=== PATIENT | female | born 1960 | race Caucasian/White ===

== ENCOUNTER → 2017-03-24 | Outpatient (CLI) | payer BC ==
--- NOTE | 2017-03-24 11:14 | P.STRESS ---
- Stress Test Note Stress Test Results/Findings: Exam Performed: NM stress lexiscan cardiolite Exam Date: 03/24/17 Height: 5 ft 4 in Weight: 61.235 kg Protocol: Genoveva Stage: N/A Duration of Exercise: N/A Resting Heart Rate: 70 Resting Blood Pressure: 137/91 Maximum Achieved Heart Rate: 131 Maximum Achieved Blood Pressure: 141/92 85% PMHR: 141 100% PMHR: 166 METS: N/A Technologist Comment: Stress Test Results/Findings: Baseline rhythm is sinus mechanism, rate of 70, nonspecific ST changes. Patient received injection of Lexiscan, there was no diagnostic ST segment changes. Cardiolite was injected per protocol. Impression : 1. Nondiagnostic EKG stress test. 2. Nuclear images will be reported separately.
--- NOTE | 2017-03-24 11:51 | NM ---
EXAMINATION TYPE: NM stress Lexiscan cardiolite DATE OF EXAM: 03/24/2017 COMPARISON: NONE HISTORY: Abnormal EKG. TECHNIQUE: After the intravenous administration of 9.6 mCi Tc 99m Sestamibi - Cardiolite resting SPE CT images acquired 45 minutes post injection. The patient received 0.4mg Lexiscan, 26.3 mCi Tc 99m Sestamibi - Stress images obtained [address] injection FINDINGS: There is relatively poor uptake of radiopharmaceutical by the left ventricle. There is incr eased activity on the rest images globally. I suspect this represents an information density problem resolving Global ischemia. Wall motion appears normal ejection fraction is normal 60%. IMPRESSION: INFORMATION DENSITY PROBLEM VERSUS GLOBAL ISCHEMIA.
== END | disposition home or self-care (01) ==
LOC: RADNMMAIN 08:57
PROVIDERS: ATTEND Family Medicine
DX: R94.31 Abnormal electrocardiogram [ECG] [EKG] (principal)
CPT/HCPCS: 93017; 78452; A9500

== ENCOUNTER 2017-06-05 16:14 | Emergency (ER) | payer BC ==
[2017-06-05 16:18] VITALS: RESP 18; TEMP 97.9
[2017-06-05] MEDS ORDERED: ORPHENADRINE 30 MG/ML 2 ML VIAL IM STA (16:42)
[2017-06-05] MEDS ORDERED: methylPREDNISolone SOD SUCCI 125 MG/2 ML VIAL IM ONE (16:42)
--- NOTE | 2017-06-05 16:59 | ED ---
Back Pain HPI - General Chief Complaint: Back Pain/Injury Stated Complaint: BACK PAIN/INJURY Time Seen by Provider: 06/05/17 16:19 Source: patient, RN notes reviewed, old records reviewed Limitations: no limitations - History of Present Illness Initial Comments: This is a 56 year old female with CC of left sided thoracic back pain after picking up her grandchildren frequently this week. Matthew reports that this started to be worse when she picked the grandchild up on [place] an [place], and felt a pull in her back. She went to chiropractor on yesterday, and reports it is worse. She states she has been taking motrin with no relief. Patient denies any saddle anesthesias, denies any pain radiating down the legs. - Related Data Home Medications Medication Instructions Recorded Confirmed [id number] 1 each PO DIRECTED PRN 08/17/16 08/17/16 [Excedrin] amLODIPine [Norvasc] 5 mg PO DAILY 08/24/16 08/24/16 Previous Rx's Medication Instructions Recorded Acetaminophen-Codeine 300-30mg 1 tab PO Q6H PRN #15 tablet 06/05/17 [Tylenol #3] Cyclobenzaprine [Flexeril] 10 mg PO TID #15 tab 06/05/17 Dexamethasone 0.75 mg PO DAILY #12 tab 06/05/17 Allergies Allergy/AdvReac Type Severity Reaction Status Date / Time sulfamethoxazole Allergy Severe SWELLING Verified 06/05/17 16:18 [From Bactrim] ALL OVER. trimethoprim [From Bactrim] Allergy Severe SWELLING Verified 06/05/17 16:18 ALL OVER. lisinopril AdvReac Cough Verified 06/05/17 16:18 Review of Systems ROS Statement: Those systems with pertinent positive or pertinent negative responses have been documented in the HPI. ROS Other: All systems not noted in ROS Statement are negative. Past Medical History Past Medical History: No Reported History History of Any Multi-Drug Resistant Organisms: None Reported Past Surgical History: Bowel Resection, Ear Surgery, Orthopedic Surgery Additional Past Surgical History / Comment(s): EXPLORATORY LAPAROTOMY, TOTAL RIGHT KNEE ARTHROSCOPY, PALATE SURGERY Past Psychological History: No Psychological Hx Reported Smoking Status: Never smoker Past Alcohol Use History: None Reported Past Drug Use History: None Reported General Exam - General Exam Comments Initial Comments: Is a pleasant 56-year-old female. No acute distress. Limitations: no limitations General appearance: alert, in no apparent distress Head exam: Present: atraumatic, normocephalic, normal inspection Eye exam: Present: normal appearance, PERRL, EOMI. Absent: scleral icterus, conjunctival injection, periorbital swelling ENT exam: Present: normal exam, mucous membranes moist Neck exam: Present: normal inspection. Absent: tenderness, meningismus, lymphadenopathy Respiratory exam: Present: normal lung sounds bilaterally. Absent: respiratory distress, wheezes, rales, rhonchi, stridor Cardiovascular Exam: Present: regular rate, normal rhythm, normal heart sounds. Absent: systolic murmur, diastolic murmur, rubs, gallop, clicks GI/Abdominal exam: Present: soft, normal bowel sounds. Absent: distended, tenderness, guarding, rebound, rigid Extremities exam: Present: normal inspection, full ROM, normal capillary refill. Absent: tenderness, pedal edema, joint swelling, calf tenderness Back exam: Present: normal inspection, tenderness (left thoracic and lumbar paraspinal tenderness), paraspinal tenderness (left thoracic ) Neurological exam: Present: alert, oriented X3, CN II-XII intact Psychiatric exam: Present: normal affect, normal mood Skin exam: Present: warm, dry, intact, normal color. Absent: rash Course Vital Signs 06/05/17 16:15 Temperature 97.9 F Pulse Rate 87 Respiratory 18 Rate Blood Pressure 193/93 O2 Sat by Pulse 98 Oximetry Medical Decision Making - Medical Decision Making This is a 56-year-old female presents emergency Department chief complaint of left-sided thoracic back pain worse with movements and it started after she picked up her grandchild. Patient given IM Norflex and Solu-Medrol. Patient reports a Motrin and I'm helping. Denies any recent falls. Denies any saddle anesthesias. Patient is full range of motion however extremities. Patient received thoracic and lumbar spine x-rays. Thoracic spine was normal. Mild degenerative disc changes at L5-S1. Patient was informed of these results. Patient will be discharged at this time with a prescription for muscle relaxers , anti-inflammatory medication, and pain medication. Discussed following up with primary care provider or crisis intervention specialist. Discussed return to emergency department if any alarming signs or symptoms occur. Patient agrees to treatment plan will comply. Return parameters were discussed. - Radiology Data Radiology results: report reviewed X-ray of the thoracic spine was within normal limits. Mild degenerative disc changes at L5-S1. Disposition Clinical Impression: Back muscle spasm Disposition: HOME SELF-CARE Condition: Good Instructions: Acute Low Back Pain (ED), Muscle Spasm (ED) Additional Instructions: Patient has a continue to apply ice over the area. Also alternate with heat for 20 minutes. Patient should take the anti-inflammatory medication such as Motrin, and take the steroid, muscle relaxer and pain medicine as prescribed. Patient should follow up with your primary care provider if symptoms continue to persist after the next 3-4 days. Return to emergency department if any alarming signs or symptoms occur including loss of bowel or bladder control. Prescriptions: Acetaminophen-Codeine 300-30mg [Tylenol #3] 1 tab PO Q6H PRN #15 tablet PRN Reason: Pain Cyclobenzaprine [Flexeril] 10 mg PO TID #15 tab Dexamethasone 0.75 mg PO DAILY #12 tab Referrals: Serina Ponce NPC [Nurse Practitioner] - 1-2 days Time of Disposition: 17:15
--- NOTE | 2017-06-05 17:06 | XR ---
EXAMINATION TYPE: XR lumbar spine 2 or 3V DATE OF EXAM: 06/05/2017 COMPARISON: NONE HISTORY: Pain mid to lower back TECHNIQUE: Three-view lumbar spine FINDINGS: There is narrowing of the L5-S1 disc height. Remaining disc heights are preserved. Vertebra l body heights are preserved. Alignment is normal. There 5 lumbar-type vertebral bodies. The pedicles are intact. IMPRESSION: 1. Mild degenerative disc changes L5-S1
--- NOTE | 2017-06-05 17:07 | XR ---
EXAMINATION TYPE: XR thoracic spine 2V DATE OF EXAM: 06/05/2017 COMPARISON: NONE HISTORY: Mid back pain after bending injury TECHNIQUE: 3 views thoracic spine FINDINGS: There are 12 thoracic type vertebral bodies. Pedicles are intact. Disc heights are preserve d. Vertebral body heights are preserved. Alignment is normal. IMPRESSION: 1. Normal thoracic spine
[2017-06-05 17:30] VITALS: BP 157/97; PULSE 77
== END 2017-06-05 17:38 | disposition home or self-care (01) ==
LOC: EC 16:14
DX: M62.830 Muscle spasm of back (principal); M47.817 Spondylosis without myelopathy or radiculopathy, lumbosacral region; Z79.899 Other long term (current) drug therapy; Z88.2 Allergy status to sulfonamides; Z88.8 Allergy status to other drugs, medicaments and biological substances
CPT/HCPCS: 99284 ×2; 96372 ×3; 72070; 72100; J2360; J2930

== ENCOUNTER → 2017-11-08 | Outpatient (CLI) | payer BC ==
[2017-11-08 14:11] LABS: HCT 42.1 % (34.0-46.0); HGB 13.3 gm/dL (11.4-16.0); MCH 29.4 pg (25.0-35.0); MCHC 31.5 g/dL (31.0-37.0); MCV 93.2 fL (80.0-100.0); Mean Platelet Volume 6.9; Platelet Count 367 k/uL (150-450); RBC 4.51 m/uL (3.80-5.40); WBC 5.6 k/uL (3.8-10.6)
== END | disposition home or self-care (01) ==
LOC: LABWHC1 12:47
PROVIDERS: ATTEND Orthopaedic Surgery Adult Reconstructive Orthopaedic Surgery
DX: Z01.89 Encounter for other specified special examinations (principal)
CPT/HCPCS: 36415; 82040; 85027; 87070

== ENCOUNTER 2020-10-18 12:14 | Inpatient (IN) | payer BC ==
[2020-10-18] MEDS ORDERED: MORPHINE SULFATE 4 MG/ML SYRINGE IV STA ×2 (12:26→13:25)
[2020-10-18] MEDS ORDERED: ONDANSETRON 4 MG/2 ML VIAL IVP STA (12:26)
[2020-10-18] MEDS ORDERED: SODIUM CHLORIDE 0.9% 1,000 ML IV STA (12:26)
--- NOTE | 2020-10-18 13:00 | ED ---
Abdominal Pain HPI - General Chief Complaint: Abdominal Pain Stated Complaint: Abd pain Time Seen by Provider: 10/18/20 12:25 Source: patient Mode of arrival: ambulatory Limitations: no limitations - History of Present Illness Initial Comments: Patient complains of abdominal pain. The pain has been persistent for several days. Now the pain is radiating from the left flank to the front. She has no chest pain or shortness of breath. She has no palpitations. She has no focal weakness. She has no lightheadedness or dizziness. She has no nausea or vomiting. She has no change in bowel or bladder habits. She has taken no medicine for the symptoms. She wasn't doing anything when this began. - Related Data Home Medications Medication Instructions Recorded Confirmed Losartan [Cozaar] 50 mg PO DAILY 10/18/20 10/18/20 Allergies Allergy/AdvReac Type Severity Reaction Status Date / Time sulfamethoxazole Allergy Severe SWELLING Verified 10/18/20 13:52 [From Bactrim] ALL OVER. trimethoprim [From Bactrim] Allergy Severe SWELLING Verified 10/18/20 13:52 ALL OVER. lisinopril AdvReac Cough Verified 10/18/20 13:52 Review of Systems ROS Statement: Those systems with pertinent positive or pertinent negative responses have been documented in the HPI. ROS Other: All systems not noted in ROS Statement are negative. Past Medical History Past Medical History: No Reported History History of Any Multi-Drug Resistant Organisms: None Reported Past Surgical History: Bowel Resection, Ear Surgery, Orthopedic Surgery Additional Past Surgical History / Comment(s): EXPLORATORY LAPAROTOMY, TOTAL RIGHT KNEE ARTHROSCOPY, PALATE SURGERY Past Psychological History: No Psychological Hx Reported Smoking Status: Never smoker Past Alcohol Use History: Occasional Past Drug Use History: None Reported General Exam Limitations: no limitations General appearance: alert, in no apparent distress Head exam: Present: atraumatic, normocephalic, normal inspection Eye exam: Present: normal appearance, PERRL, EOMI. Absent: scleral icterus, conjunctival injection, periorbital swelling ENT exam: Present: normal exam, mucous membranes moist Neck exam: Present: normal inspection. Absent: tenderness, meningismus, lymphadenopathy Respiratory exam: Present: normal lung sounds bilaterally. Absent: respiratory distress, wheezes, rales, rhonchi, stridor Cardiovascular Exam: Present: regular rate, normal rhythm, normal heart sounds. Absent: systolic murmur, diastolic murmur, rubs, gallop, clicks GI/Abdominal exam: Present: soft, tenderness. Absent: distended, guarding, rebound, rigid Extremities exam: Present: normal inspection, full ROM, normal capillary refill. Absent: tenderness, pedal edema, joint swelling, calf tenderness Back exam: Present: normal inspection Neurological exam: Present: alert, oriented X3, CN II-XII intact Psychiatric exam: Present: normal affect, normal mood Skin exam: Present: warm, dry, intact, normal color. Absent: rash Course Vital Signs 10/18/20 10/18/20 10/18/20 12:15 12:43 13:33 Temperature 99.0 F 97.9 F Pulse Rate 113 H 92 87 Respiratory 20 18 18 Rate Blood Pressure 204/134 169/113 154/82 O2 Sat by Pulse 99 99 99 Oximetry Medical Decision Making - Medical Decision Making Patient presents with abdominal pain. Her laboratory studies show a slight elevation of lipase. However, her CT of the abdomen and pelvis does not show any evidence of any acute emergency including gallbladder pathology. Patient is able to tolerate oral intake. She will follow-up with GI. She is stable for discharge. - Lab Data Result diagrams: 10/18/20 12:39 10/18/20 12:39 Lab Results 10/18/20 10/18/20 10/18/20 Range/Units 12:39 12:39 12:57 WBC 6.9 (3.8-10.6) k/uL RBC 4.92 (3.80-5.40) m/uL Hgb 15.3 (11.4-16.0) gm/dL Hct 46.6 H (34.0-46.0) % MCV 94.6 (80.0-100.0) fL MCH 31.0 (25.0-35.0) pg MCHC 32.8 (31.0-37.0) g/dL RDW 13.0 (11.5-15.5) % Plt Count 404 (150-450) k/uL MPV 6.9 Neutrophils % 76 % Lymphocytes % 17 % Monocytes % 2 % Eosinophils % 4 % Basophils % 1 % Neutrophils # 5.3 (1.3-7.7) k/uL Lymphocytes # 1.2 (1.0-4.8) k/uL Monocytes # 0.1 (0-1.0) k/uL Eosinophils # 0.3 (0-0.7) k/uL Basophils # 0.0 (0-0.2) k/uL Sodium 138 (137-145) mmol/L Potassium 3.9 (3.5-5.1) mmol/L Chloride 101 (98-107) mmol/L Carbon Dioxide 30 (22-30) mmol/L Anion Gap 7 mmol/L BUN 25 H (7-17) mg/dL Creatinine 0.53 (0.52-1.04) mg/dL Est GFR (CKD-EPI)AfAm >90 (>60 ml/min/1.73 sqM) Est GFR (CKD-EPI)NonAf >90 (>60 ml/min/1.73 sqM) Glucose 134 H (74-99) mg/dL Calcium 10.0 (8.4-10.2) mg/dL Total Bilirubin 0.7 (0.2-1.3) mg/dL AST 32 (14-36) U/L ALT 23 (4-34) U/L Alkaline Phosphatase 72 (38-126) U/L Total Protein 7.3 (6.3-8.2) g/dL Albumin 4.4 (3.5-5.0) g/dL Amylase 88 (30-110) U/L Lipase 588 H (23-300) U/L Urine Color Yellow Urine Appearance Clear (Clear) Urine pH 5.5 (5.0-8.0) Ur Specific [place] 1.029 (1.001-1.035) Urine Protein Trace H (Negative) Urine Glucose (UA) Negative (Negative) Urine Ketones Trace H (Negative) Urine Blood Negative (Negative) Urine Nitrite Negative (Negative) Urine Bilirubin Negative (Negative) Urine Urobilinogen <2.0 (<2.0) mg/dL Ur Leukocyte Esterase Negative (Negative) Disposition Clinical Impression: Acute pancreatitis Disposition: HOME SELF-CARE Condition: Good Instructions (If sedation given, give patient instructions): Pancreatitis (ED) Is patient prescribed a controlled substance at d/c from ED?: No Referrals: Morales Green DO [Primary Care Provider] - 1-2 days Hair Arreola MD [STAFF PHYSICIAN] - 1-2 days
[2020-10-18 13:11] LABS: Basophils % (A) 1 %; Eosinophils # (A) 0.3 k/uL (0-0.7); Eosinophils % (A) 4 %; HCT 46.6 % (34.0-46.0); HGB 15.3 gm/dL (11.4-16.0); Lymphocytes # (A) 1.2 k/uL (1.0-4.8); Lymphocytes % (A) 17 %; MCHC 32.8 g/dL (31.0-37.0); MCV 94.6 fL (80.0-100.0); Mean Platelet Volume 6.9; Monocytes # (A) 0.1 k/uL (0-1.0); Monocytes % (A) 2 %; Neutrophils # (A) 5.3 k/uL (1.3-7.7); Neutrophils % (A) 76 %; Platelet Count 404 k/uL (150-450); RBC 4.92 m/uL (3.80-5.40); WBC 6.9 k/uL (3.8-10.6)
[2020-10-18 13:12] LABS: ALT 23 U/L (4-34); AST 32 U/L (14-36); African American GFR (CKD) >90 (>60 ml/min/1.73 sqM); Albumin 4.4 g/dL (3.5-5.0); Alkaline Phosphatase 72 U/L (38-126); Amylase 88 U/L (30-110); Anion Gap 7 mmol/L; Blood Urea Nitrogen 25 mg/dL (7-17); Carbon Dioxide 30 mmol/L (22-30); Chloride 101 mmol/L (98-107); Glucose 134 mg/dL (74-99); Lipase 588 U/L (23-300); Non-African American GFR(CKD) >90 (>60 ml/min/1.73 sqM); Sodium 138 mmol/L (137-145); Total Bilirubin 0.7 mg/dL (0.2-1.3); Total Protein 7.3 g/dL (6.3-8.2)
[2020-10-18 13:15] LABS: Potassium 3.9 mmol/L (3.5-5.1)
[2020-10-18 13:24] LABS: Appearance,Urine Clear (Clear); Bilirubin,Urine Negative (Negative); Blood,Urine Negative (Negative); Color,Urine Yellow; Glucose,Urine (UA) Negative (Negative); Ketones,Urine Trace (Negative); Leukocyte Esterase,Urine Negative (Negative); Nitrite,Urine Negative (Negative); PH, Urine 5.5 (5.0-8.0); Protein,Urine Trace (Negative); Specific Gravity,Urine 1.029 (1.001-1.035); Urobilinogen,Urine <2.0 mg/dL (<2.0)
--- NOTE | 2020-10-18 14:00 | CT ---
EXAMINATION TYPE: CT abdomen pelvis w con DATE OF EXAM: 10/18/2020 COMPARISON: None INDICATION: bilateral upper quadrant pain DLP: 563.1 mGycm, Automated exposure control for dose reduction was used. CONTRAST: 100 mL of Isovue 300. Study performed without Oral Contrast TECHNIQUE: Axial images were obtained from above the diaphragm to the pubic rami in the axial plane a t 5 mm thick sections. Reconstructed images are reviewed on the computer in the coronal plane. FINDINGS: Limited CT sections are obtained the lung bases. The lung bases are clear. CT ABDOMEN: Some minimal fluid appears to be present adjacent to the liver and within the mesentery. Some minimal fluid is within the paracolic gutters and within the pelvis. Liver: Normal Spleen: Normal Pancreas: Normal Adrenal glands: The adrenal glands are normal. Gallbladder: Normal Kidneys: No masses are evident. No hydronephrosis is present. No cysts are present. Delayed images were obtained through the kidneys, which remain unremarkable. Aorta: Normal Inferior vena cava: Normal. CT PELVIS: There are some small bowel loops which are dilated with fluid in the pelvis may be some mild ileus. R emaining small bowel loops are nondilated. No obstruction is evident. Anastomosis of the ascending co mercedez is present. This appears widely patent. This study is performed without oral contrast causing kellie e limitation. Appendix: Not visualized Urinary bladder: Normal. Genitourinary structures: Uterus appears normal. Adnexal regions are clear. Osseous structures: No suspicious lytic or sclerotic lesions. IMPRESSIONS: 1. Mild small bowel ileus within the pelvis. No suspicious changes to suggest obstruction 2. Mild nonspecific free fluid within the abdomen and pelvis.
[2020-10-18] MEDS ORDERED: NALOXONE 0.4 MG/ML 1 ML VIAL IV PRN (14:47)
[2020-10-18] MEDS ORDERED: MORPHINE SULFATE 4 MG/ML SYRINGE IV PRN (14:47)
[2020-10-18] MEDS ORDERED: ONDANSETRON 4 MG/2 ML VIAL IVP PRN (14:47)
[2020-10-18] MEDS ORDERED: DOCUSATE 100 MG CAP PO PRN (14:47)
--- NOTE | 2020-10-18 14:55 | ED ---
Medical Decision Making - Medical Decision Making I was notified and the patient was developing worsening belly pain. Her CT did show an ileus. I'm concerned it to get worse. I'm concern her pancreatitis could get worse. She is not able tolerate oral intake on reevaluation. She will be admitted to the hospital. I will consult GI. - Lab Data Result diagrams: 10/18/20 12:39 10/18/20 12:39 Lab Results 10/18/20 10/18/20 10/18/20 Range/Units 12:39 12:39 12:57 WBC 6.9 (3.8-10.6) k/uL RBC 4.92 (3.80-5.40) m/uL Hgb 15.3 (11.4-16.0) gm/dL Hct 46.6 H (34.0-46.0) % MCV 94.6 (80.0-100.0) fL MCH 31.0 (25.0-35.0) pg MCHC 32.8 (31.0-37.0) g/dL RDW 13.0 (11.5-15.5) % Plt Count 404 (150-450) k/uL MPV 6.9 Neutrophils % 76 % Lymphocytes % 17 % Monocytes % 2 % Eosinophils % 4 % Basophils % 1 % Neutrophils # 5.3 (1.3-7.7) k/uL Lymphocytes # 1.2 (1.0-4.8) k/uL Monocytes # 0.1 (0-1.0) k/uL Eosinophils # 0.3 (0-0.7) k/uL Basophils # 0.0 (0-0.2) k/uL Sodium 138 (137-145) mmol/L Potassium 3.9 (3.5-5.1) mmol/L Chloride 101 (98-107) mmol/L Carbon Dioxide 30 (22-30) mmol/L Anion Gap 7 mmol/L BUN 25 H (7-17) mg/dL Creatinine 0.53 (0.52-1.04) mg/dL Est GFR (CKD-EPI)AfAm >90 (>60 ml/min/1.73 sqM) Est GFR (CKD-EPI)NonAf >90 (>60 ml/min/1.73 sqM) Glucose 134 H (74-99) mg/dL Calcium 10.0 (8.4-10.2) mg/dL Total Bilirubin 0.7 (0.2-1.3) mg/dL AST 32 (14-36) U/L ALT 23 (4-34) U/L Alkaline Phosphatase 72 (38-126) U/L Total Protein 7.3 (6.3-8.2) g/dL Albumin 4.4 (3.5-5.0) g/dL Amylase 88 (30-110) U/L Lipase 588 H (23-300) U/L Urine Color Yellow Urine Appearance Clear (Clear) Urine pH 5.5 (5.0-8.0) Ur Specific [place] 1.029 (1.001-1.035) Urine Protein Trace H (Negative) Urine Glucose (UA) Negative (Negative) Urine Ketones Trace H (Negative) Urine Blood Negative (Negative) Urine Nitrite Negative (Negative) Urine Bilirubin Negative (Negative) Urine Urobilinogen <2.0 (<2.0) mg/dL Ur Leukocyte Esterase Negative (Negative) Disposition Clinical Impression: Acute pancreatitis Disposition: ADMITTED IP TO THIS [facility] Condition: Fair Instructions (If sedation given, give patient instructions): Pancreatitis (ED) Referrals: Morales Green DO [Primary Care Provider] - 1-2 days Hair Arreola MD [STAFF PHYSICIAN] - 1-2 days
[2020-10-18] MEDS: SODIUM CHLORIDE 0.9% 1,000 ML IV SCH (15:27)
[2020-10-18] MEDS ORDERED: DICYCLOMINE 10 MG CAP PO STA (15:39)
[2020-10-19] MEDS: SODIUM CHLORIDE 0.9% 1,000 ML IV SCH ×4 (00:58→18:13)
[2020-10-19] MEDS: ACETAMINOPHEN TAB 325 MG TAB PO PRN ×3 (08:07→20:53)
[2020-10-19] MEDS: LOSARTAN 50 MG TAB PO SCH (08:07)
[2020-10-19 09:58] LABS: Basophils % (A) 0 %; Eosinophils % (A) 0 %; HCT 42.1 % (34.0-46.0); HGB 13.7 gm/dL (11.4-16.0); Lymphocytes # (A) 0.5 k/uL (1.0-4.8); Lymphocytes % (A) 5 %; MCH 31.2 pg (25.0-35.0); MCHC 32.5 g/dL (31.0-37.0); Mean Platelet Volume 6.6; Monocytes # (A) 0.5 k/uL (0-1.0); Monocytes % (A) 5 %; Neutrophils # (A) 9.4 k/uL (1.3-7.7); Neutrophils % (A) 90 %; Platelet Count 342 k/uL (150-450); RBC 4.39 m/uL (3.80-5.40); WBC 10.5 k/uL (3.8-10.6)
[2020-10-19 10:09] LABS: ALT 16 U/L (4-34); AST 22 U/L (14-36); African American GFR (CKD) >90 (>60 ml/min/1.73 sqM); Albumin 3.3 g/dL (3.5-5.0); Albumin/Globulin Ratio 1.4; Alkaline Phosphatase 56 U/L (38-126); Anion Gap 9 mmol/L; Blood Urea Nitrogen 19 mg/dL (7-17); Calcium 9.1 mg/dL (8.4-10.2); Carbon Dioxide 22 mmol/L (22-30); Chloride 106 mmol/L (98-107); Globulin 2.4 g/dL; Glucose 105 mg/dL (74-99); Non-African American GFR(CKD) >90 (>60 ml/min/1.73 sqM); Potassium 3.7 mmol/L (3.5-5.1); Sodium 137 mmol/L (137-145); Total Bilirubin 0.7 mg/dL (0.2-1.3); Total Protein 5.7 g/dL (6.3-8.2)
[2020-10-19] MEDS: PANTOPRAZOLE 40 MG/10 ML VIAL IVP SCH ×2 (11:48→20:53)
[2020-10-19] MEDS: ENOXAPARIN 40 MG/0.4 ML SYRINGE SQ SCH (11:49)
--- NOTE | 2020-10-19 13:11 | CONS ---
CONSULTATION DATE OF DICTATION: October 19, 2020. REQUESTING PHYSICIAN: Dr. Morales Green. REASON FOR CONSULTATION: Severe epigastric pain. HISTORY OF PRESENT ILLNESS: The patient is a 60-year-old pleasant white female came to the emergency room yesterday complaining of severe epigastric pain for the last 3-4 days duration. The pain basically started in her mid upper back radiating to the epigastric area associated with some nausea but no emesis. The pain continued to progressively get worse and hence came to the emergency room yesterday. In the ER, she had labs done that showed mild elevation of lipase consistent with mild acute pancreatitis and subsequently admitted to the hospital for further evaluation. The patient denies having any symptoms in the past. She was recently diagnosed with hypertension and was started on Cozaar, which she only took for 2 days. She never had pancreatitis in the past. She denies any alcohol use. No recent NSAID use. She does take Excedrin for chronic headaches. No prior history of peptic ulcer disease. She denies any rectal bleeding or melena. No fever, chills, night sweats. No recent weight loss. PAST MEDICAL HISTORY: Significant for hypertension diagnosed 2 days ago. MEDICATIONS: Medications at home include: Cozaar. ALLERGIES: BACTRIM AND LISINOPRIL. SOCIAL HISTORY: No smoking. No alcohol use. PAST SURGICAL HISTORY: Exploratory laparotomy for small bowel obstruction by Dr. Lucio in 2007, bilateral knee replacement. FAMILY HISTORY: Unremarkable. REVIEW OF SYSTEMS: CARDIOPULMONARY: He denies any chest pain, shortness of breath. no dysuria or hematuria. MUSCULOSKELETAL unremarkable. SKIN unremarkable. ENDOCRINE unremarkable. PSYCHIATRIC unremarkable. NEUROLOGY: Unremarkable. ENT/VISION: Unremarkable. CONSTITUTIONAL: No recent weight loss. No fever, chills, night sweats. PHYSICAL EXAMINATION: She appears comfortable. No apparent distress. Vital signs stable. Blood pressure is 153/89, pulse rate 113, and temperature 98.5. HEENT examination unremarkable. Conjunctivae pink. Sclerae anicteric. Oral cavity no lesions. NECK: No JVD or lymph node enlargement. CHEST was clear to auscultation. HEART: Regular rate and rhythm. ABDOMEN: Soft. There was severe tenderness in the epigastric area. Rest of the abdomen was benign. Bowel sounds are positive. No organomegaly. EXTREMITIES: No pedal edema. NEURO: She is alert and oriented x3. No focal deficits. LABS: From yesterday: WBC 6.9, hemoglobin 15.3, platelets normal. Basic metabolic panel showed a BUN of 25, creatinine 0.53. AST, ALT, T-bilirubin and alkaline phosphatase are normal, amylase is 88 and lipase is 588. Urinalysis was unremarkable. House virus PCR is negative. CT of the abdomen and pelvis done in the emergency room yesterday showed minimal fluid adjacent to the liver and within the mesentery and minimal fluid in the pericolic gutters within the pelvis. Pancreas appeared normal. Some small bowel loops appeared slightly dilated. Anastomosis of the ascending colon appears to be patent. IMPRESSION: This is a lady who presented to the hospital with acute onset of severe upper mid back pain radiating to the epigastric area for the last 3-4 days duration and labs show slightly elevated lipase consistent with mild pancreatitis. CT of the abdomen showed normal-appearing pancreas. However, there was mild nonspecific free fluid within the abdomen and pelvis and mild small bowel ileus noted. Clinically, patient has severe epigastric tenderness and at this time possibility of ongoing pancreatitis, peptic ulcer disease needs to be considered. RECOMMENDATIONS: 1. Repeat labs today including CBC, CMP, and amylase, lipase. 2. We will start her on Protonix 40 mg twice daily. 3. Based on the lab, given the lipase is improving, we can start on a clear liquid diet. 4. If no improvement in her symptoms, we will consider any an upper endoscopy in the next 1 or 2 days. The plan was discussed with the patient. She is agreeable to it. Thank you for this consultation. MMODL / BRAYANN: [id number] /
--- NOTE | 2020-10-19 14:16 | XR ---
Result: History: Positional back pain. Comparison: 06/05/2017. Technique: 5 views of the lumbar spine. Findings: The bone mineralization is normal. Images of the lumbar spine demonstrate 5 lumbar-type vertebrae. There is no acute fracture or sublux ation. The vertebral body heights are preserved throughout the imaged lumbar spine. The vertebral e lements are in anatomic alignment. There is redemonstration of mild to moderate disc height narrowin g and facet arthropathy at L5-S1. Otherwise disc heights are grossly preserved elsewhere. No evidence of dynamic instability on the flexion and extension views. Impression: Redemonstrated mild to moderate L5-S1 spondylosis without acute osseous abnormality.
--- NOTE | 2020-10-19 23:22 | P.HPIM ---
History of Present Illness H&P Date: 10/19/20 Chief Complaint: Abdominal pain History of presenting complaint: This is a very pleasant 60-year-old patient of Dr. Dinorah Green. 2 weeks ago patient started having pain in the mid back going across. She noticed that it was then inserted and positioned sitting up otherwise could be present any of the time. She found it better specifically sitting in a chair. Both present on and off. Patient also noticed upper abdominal pain recently. No nausea vomiting. No fever. Appetite is okay. And decided to present. Lipase was slightly elevated in the ER. 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 Physical examination: VITAL SIGNS: 98.5, 113, 18, 153/89, 95% room air GENERAL: BMI 24, laying in bed, not in distress. EYES: Pupils equal. Conjunctiva normal. HEENT: External appearance of nose and ears normal, oral cavity grossly normal. NECK: JVD not raised; masses not palpable. HEART: First and second heart sounds are normal; no edema. LUNGS: Respiratory rate normal; clear to auscultation. ABDOMEN: Soft, upper abdominal tenderness, no guarding rigidity, liver spleen not palpable, no masses palpable. PSYCH: Alert and oriented x3; mood and affect normal. NEUROLOGICAL: Cranial nerves grossly intact; no facial asymmetry, power and sensation grossly intact. LYMPHATICS: No lymph nodes palpable in the axilla and neck INVESTIGATIONS, reviewed in the clinical context: White count 6.9 hemoglobin 15.3 platelets 404 potassium 3.9 bun 25 creatinine 0.53 Lipase 588 Coronavirus [PCF]-not detected Computed tomography scan of the abdomen pelvis-mild nonspecific free fluid wi thin the abdomen and pelvis. Assessment: -Patient been complaining of abdominal pain for about 2 weeks worse in the mid back. Patient may have had mild pancreatitis. Epigastric tenderness somewhat out of proportion to the radiological and clinical findings. Patient may have underlying peptic ulcer disease. -Suspect lumbar osteoarthritis with radiculopathy. Plan: GI was consulted. Patient is put on clear liquids. Lumbar spine x-ray was ordered. Lovenox for DVT prophylaxis. Patient is put on PPI. Care was discussed with the patient and questions answered. Past Medical History Past Medical History: Hypertension History of Any Multi-Drug Resistant Organisms: None Reported Past Surgical History: Bowel Resection, Ear Surgery, Orthopedic Surgery Additional Past Surgical History / Comment(s): EXPLORATORY LAPAROTOMY karen "twisted intestine" in 2006 TOTAL RIGHT KNEE ARTHROSCOPY, Cleft PALATE SURGERY age 5. Bilat Cataract surgery Past Anesthesia/Blood Transfusion Reactions: No Reported Reaction Past Psychological History: No Psychological Hx Reported Smoking Status: Never smoker Past Alcohol Use History: Occasional Past Drug Use History: None Reported - Past Family History Father Family Medical History: Cancer Additional Family Medical History / Comment(s): Prostate cancer Mother Family Medical History: Cancer Additional Family Medical History / Comment(s): stomach cancer Medications and Allergies Home Medications Medication Instructions Recorded Confirmed Type Losartan [Cozaar] 50 mg PO DAILY 10/18/20 10/18/20 History Allergies Allergy/AdvReac Type Severity Reaction Status Date / Time sulfamethoxazole Allergy Severe SWELLING Verified 10/18/20 13:52 [From Bactrim] ALL OVER. trimethoprim [From Bactrim] Allergy Severe SWELLING Verified 10/18/20 13:52 ALL OVER. lisinopril AdvReac Cough Verified 10/18/20 13:52 meperidine [From Demerol] AdvReac Nausea & Verified 10/18/20 17:44 Vomiting Physical Exam Vitals: Vital Signs Temp Pulse Pulse Resp BP BP Pulse Ox 10/19/20 07:00 98.5 F 113 H 18 153/89 95 10/19/20 02:00 99.0 F 112 H 18 147/89 95 10/18/20 20:00 96 16 10/18/20 19:33 98.1 F 96 16 175/107 96 10/18/20 17:35 16 10/18/20 17:31 98.7 F 96 16 151/88 94 L 10/18/20 16:15 98.0 F 96 18 150/86 95 10/18/20 15:30 97.9 F 99 18 139/76 96 10/18/20 13:33 97.9 F 87 18 154/82 99 10/18/20 12:43 92 18 169/113 99 10/18/20 12:15 99.0 F 113 H 20 204/134 99 Intake and Output 10/18/20 10/19/20 10/19/20 22:59 06:59 14:59 Other: # Voids 1 2 Weight 63.503 kg Results CBC & Chem 7: 10/19/20 09:36 10/19/20 09:36 Labs: Abnormal Lab Results - Last 24 Hours (Table) 10/18/20 10/18/20 10/18/20 Range/Units 12:39 12:39 12:57 Hct 46.6 H (34.0-46.0) % Neutrophils # (1.3-7.7) k/uL Lymphocytes # (1.0-4.8) k/uL BUN 25 H (7-17) mg/dL Creatinine (0.52-1.04) mg/dL Glucose 134 H (74-99) mg/dL Total Protein (6.3-8.2) g/dL Albumin (3.5-5.0) g/dL Lipase 588 H (23-300) U/L Urine Protein Trace H (Negative) Urine Ketones Trace H (Negative) 10/19/20 10/19/20 Range/Units 09:36 09:36 Hct (34.0-46.0) % Neutrophils # 9.4 H (1.3-7.7) k/uL Lymphocytes # 0.5 L (1.0-4.8) k/uL BUN 19 H (7-17) mg/dL Creatinine 0.49 L (0.52-1.04) mg/dL Glucose 105 H (74-99) mg/dL Total Protein 5.7 L (6.3-8.2) g/dL Albumin 3.3 L (3.5-5.0) g/dL Lipase (23-300) U/L Urine Protein (Negative) Urine Ketones (Negative) Thrombosis Risk Factor Assmnt - Choose All That Apply Any of the Below Risk Factors Present?: Yes Each Factor Represents 1 point: Age 41-60 years Other Risk Factors: No Thrombosis Risk Factor Assessment Total Risk Factor Score: 1 Thrombosis Risk Factor Assessment Level: Low Risk
[2020-10-20] MEDS: ACETAMINOPHEN TAB 325 MG TAB PO PRN ×2 (02:54→08:44)
[2020-10-20] MEDS: SODIUM CHLORIDE 0.9% 1,000 ML IV SCH ×4 (02:55→21:40)
[2020-10-20] MEDS: ENOXAPARIN 40 MG/0.4 ML SYRINGE SQ SCH ×2 (08:44→18:08)
[2020-10-20] MEDS: PANTOPRAZOLE 40 MG/10 ML VIAL IVP SCH ×2 (08:44→21:40)
[2020-10-20] MEDS: LOSARTAN 50 MG TAB PO SCH (08:44)
[2020-10-20 10:06] LABS: HCT 36.6 % (37.2-46.3); HGB 11.9 g/dL (12.0-15.0); MCH 31.3 pg (27.0-32.0); MCHC 32.5 g/dL (32.0-37.0); MCV 96.3 fL (80.0-97.0); Mean Platelet Volume 9.5 fL (9.5-12.2); Platelet Count 327 X 10*3/uL (140-440); RDW 13.6 % (11.5-14.5); WBC 12.58 X 10*3/uL (4.50-10.00)
[2020-10-20] MEDS ORDERED: IOPAMIDOL CONTRAST (ORAL USE) VIAL PO PRN (10:10)
[2020-10-20 10:14] LABS: African American GFR (CKD) 123.6 (60.0-200.0); Albumin 3.3 g/dL (3.80-4.90); Albumin/Globulin Ratio 2.54 (1.60-3.17); Anion Gap 7.9 mmol/L (4.00-12.00); Calcium 8.2 mg/dL (8.7-10.3); Carbon Dioxide 24.1 mmol/L (21.6-31.8); Globulin 1.3 g/dL (1.6-3.3); Non-African American GFR(CKD) 106.7 (60.0-200.0); Potassium 3.8 mmol/L (3.5-5.5); Total Bilirubin 0.7 mg/dL (0.2-1.2); Total Protein 4.6 g/dL (6.2-8.2)
--- NOTE | 2020-10-20 11:40 | CT ---
EXAMINATION TYPE: CT abdomen pelvis w con DATE OF EXAM: 10/20/2020 COMPARISON: 10/18/2020 HISTORY: Severe epigastric pain; Pancreatitis, Intractable nausea and vomitting CT DLP: 508.90 mGycm Automated exposure control for dose reduction was used. CONTRAST: CT scan of the abdomen pelvis is performed with IV Contrast, patient injected with 100 ml mL of Isovu e 300. FINDINGS- LUNG BASES-bilateral breast prostheses. There is bilateral pleural effusions and consolidation.. LIVER/GB-subcentimeter hypodensity in the left lobe of the liver are stable to smaller characterize.. No gallstones. PANCREAS- No gross abnormality is seen. SPLEEN- No gross abnormality is seen. ADRENALS- No gross abnormality is seen. KIDNEYS/BLADDER- no hydronephrosis nephrolithiasis or renal mass. BOWEL- no bowel dilatation. Normal appendix. LYMPH NODES- No greater than 1cm abdominal or pelvic lymph nodes areappreciated. OSSEOUS STRUCTURES- No significant abnormality is seen. OTHER- there is diffuse ascites with free intraperitoneal air. There is a large air-fluid collection in the subdiaphragmatic space. Measures 10 cm. This may be contiguous with the ascites represents fr ee air within the ascites. Numerous other areas of free intraperitoneal air noted there is evidence o f previous surgery involving the bowel loops in right abdomen. Free fluid in the pelvis noted. Retain ed fecal debris throughout the colon. Mesenteric stranding suggesting mesenteritis or peritonitis. Lo bulated uterus suggestive of uterine fibroids. IMPRESSION- 1. There is free intraperitoneal air with the ascites. Correlate for bowel perforation or viscus ru pture. Within the subdiaphragmatic space anterior to the liver there is air-fluid level measuring 11 cm. This likely represents an abscess. Air mixed with ascites also in the differential diagnosis. [place] gical consultation recommended. Report called to the patient's nurse Zara at 11:27 AM 10/20/2020. T here is thickening of the gastric wall could be correlated clinically to assess for gastric ulcer wit h perforation. 2. Increased attenuation within the mesentery could represent mesenteric right is or peritonitis. 3. Bilateral pleural effusions and basilar consolidation.
--- NOTE | 2020-10-20 11:58 | PN ---
PROGRESS NOTE DATE OF SERVICE: 10/20/2020 Patient is a 60-year-old pleasant white female admitted to the hospital with severe back pain radiating to the epigastric area for the last 3-4 days duration. She was seen in consultation yesterday and was noted to have mild elevation of lipase consistent with mild pancreatitis. However, today, the patient continues to have epigastric pain but she states that she is feeling better, but she started experiencing left shoulder pain and left-sided chest pain that started around midnight. She denies any nausea, vomiting. On a full liquid diet, tolerating well. She reports no rectal bleeding or melena. PHYSICAL EXAMINATION: She appears comfortable. VITAL SIGNS: Stable. Blood pressure is 161/102, pulse rate 106 and temperature 99. HEENT examination unremarkable. Conjunctivae pink. Sclerae anicteric. Oral cavity no lesions. NECK: No JVD or lymph node enlargement. CHEST was clear to auscultation. HEART: Regular rate and rhythm. ABDOMEN: Soft. It was severely tender in the epigastric area. EXTREMITIES: No pedal edema. SKIN: No rashes. NEUROLOGIC: Alert and oriented x3. No focal deficits. LABS: From today WBC 12.5, hemoglobin 11.9, platelets normal. Lipase is down to 27, T bilirubin is 4.6. IMPRESSION: 1. Severe epigastric pain radiating to the back extending into the left shoulder area. Rule out perforated peptic ulcer disease. The patient has mild leukocytosis today. Lipase is normalized. 2. Elevated lipase, probably nonspecific, which has been normalized today. RECOMMENDATIONS: 1. Obtain stat surgical consultation. 2. Repeat CT of the abdomen and pelvis today. 3. Keep her n.p.o. for now. 4. The plan was discussed with the patient as well as with Dr. John. 5. Will follow with you closely. Thank you for this consultation. MMODL / IJN: [id number] /
[2020-10-20] MEDS ORDERED: HYDROmorphone 1 MG/ML 1 ML SYRINGE IVP STA (12:01)
[2020-10-20 12:09] LABS: Basophils # (A) 0.02 X 10*3/uL (0.00-0.10); Basophils % (A) 0.2 %; Eosinophils # (A) 0.01 X 10*3/uL (0.04-0.35); Eosinophils % (A) 0.1 %; Lymphocytes # (A) 0.59 X 10*3/uL (0.90-5.00); Lymphocytes % (A) 4.7 %; Monocytes # (A) 0.79 X 10*3/uL (0.20-1.00); Monocytes % (A) 6.3 %; Neutrophils # (A) 11.09 X 10*3/uL (1.80-7.70); Neutrophils % (A) 88.1 %
[2020-10-20] MEDS ORDERED: LIDOCAINE 1% INJ 10MG/ML (20 ML MDV) ONE (12:56)
[2020-10-20] MEDS ORDERED: fentaNYL (PF) 50 MCG/ML 2 ML AMP ONE (12:56)
[2020-10-20] MEDS ORDERED: SUCCINYLCHOLINE CHLORIDE 100 MG/5 ML SYR IV ONE (12:56)
[2020-10-20] MEDS ORDERED: NEOSTIGMINE 1 MG/ML 10 ML VIAL ONE (12:56)
[2020-10-20] MEDS ORDERED: FLUCONAZOLE IN NACL,ISO-OSM 200 MG/100 ML BAG IVPB ONE (12:56)
[2020-10-20] MEDS ORDERED: ROPIVACAINE 5 MG/ML 30 ML VIAL ONE (12:56)
[2020-10-20] MEDS ORDERED: KETOROLAC 15 MG/ML 1 ML VIAL ONE (12:56)
[2020-10-20] MEDS ORDERED: IV FLUID CONTINUATION 700 ML IV ONE (12:56)
[2020-10-20] MEDS ORDERED: SODIUM CHLORIDE 0.9% 100 ML BAG ONE (12:56)
[2020-10-20] MEDS ORDERED: ROCURONIUM 10 MG/ML (5 ML VIAL) IV ONE (12:56)
[2020-10-20] MEDS ORDERED: ceFAZolin 1,000 MG VIAL ONE (12:56)
[2020-10-20] MEDS ORDERED: MIDAZOLAM 2 MG/2 ML VIAL ONE (12:56)
[2020-10-20] MEDS ORDERED: PROPOFOL 10 MG/ML 20 ML VIAL IV ONE (12:56)
--- NOTE | 2020-10-20 13:04 | P.GSCN ---
History of Present Illness Consult date: 10/20/20 Reason for Consult: Acute abdominal pain History of present illness: This a 60-year-old female who was admitted Dr. sheela alexis yesterday. Patient had complaints of severe abdominal pain. Patient's pain worsened overnight. She states that she's been taking Tums over the last 2 weeks. She also takes Aleve or back pain Past Medical History Past Medical History: Hypertension History of Any Multi-Drug Resistant Organisms: None Reported Past Surgical History: Bowel Resection, Ear Surgery, Orthopedic Surgery Additional Past Surgical History / Comment(s): EXPLORATORY LAPAROTOMY karen "twisted intestine" in 2006 TOTAL RIGHT KNEE ARTHROSCOPY, Cleft PALATE SURGERY age 5. Bilat Cataract surgery Past Anesthesia/Blood Transfusion Reactions: No Reported Reaction Past Psychological History: No Psychological Hx Reported Smoking Status: Never smoker Past Alcohol Use History: Occasional Past Drug Use History: None Reported - Past Family History Father Family Medical History: Cancer Additional Family Medical History / Comment(s): Prostate cancer Mother Family Medical History: Cancer Additional Family Medical History / Comment(s): stomach cancer Medications and Allergies Home Medications Medication Instructions Recorded Confirmed Type Losartan [Cozaar] 50 mg PO DAILY 10/18/20 10/18/20 History Allergies Allergy/AdvReac Type Severity Reaction Status Date / Time sulfamethoxazole Allergy Severe SWELLING Verified 10/18/20 13:52 [From Bactrim] ALL OVER. trimethoprim [From Bactrim] Allergy Severe SWELLING Verified 10/18/20 13:52 ALL OVER. lisinopril AdvReac Cough Verified 10/18/20 13:52 meperidine [From Demerol] AdvReac Nausea & Verified 10/18/20 17:44 Vomiting Surgical - Exam Vital Signs Temp Pulse Resp BP Pulse Ox 99.0 F 113 H 20 204/134 99 10/18/20 12:15 10/18/20 12:15 10/18/20 12:15 10/18/20 12:15 10/18/20 12:15 - General well developed, moderate distress - Eyes PERRL - ENT normal pinna, normal nares - Neck no masses - Respiratory normal expansion - Cardiovascular Rhythm: regular - Abdomen Acute abdominal pain with with guarding and rebound tenderness Abdomen: soft Results - Labs 10/20/20 06:06 10/20/20 06:06 Abnormal Lab Results - Last 24 Hours (Table) 10/20/20 10/20/20 Range/Units 06:06 06:06 WBC 12.58 H (4.50-10.00) X 10*3/uL RBC 3.80 L (4.10-5.20) X 10*6/uL Hgb 11.9 L (12.0-15.0) g/dL Hct 36.6 L (37.2-46.3) % Immature Gran # 0.08 H (0.00-0.04) X 10*3/uL Neutrophils # 11.09 H (1.80-7.70) X 10*3/uL Lymphocytes # 0.59 L (0.90-5.00) X 10*3/uL Eosinophils # 0.01 L (0.04-0.35) X 10*3/uL Creatinine 0.5 L (0.6-1.5) mg/dL BUN/Creatinine Ratio 34.00 H (12.00-20.00) Ratio Calcium 8.2 L (8.7-10.3) mg/dL Total Protein 4.6 L (6.2-8.2) g/dL Albumin 3.30 L (3.80-4.90) g/dL Globulin 1.3 L (1.6-3.3) g/dL Diabetes panel 10/20/20 Range/Units 06:06 Sodium 141 (135-145) mmol/L Potassium 3.8 (3.5-5.5) mmol/L Chloride 109 (96-109) mmol/L Carbon Dioxide 24.1 (21.6-31.8) mmol/L BUN 17.0 (9.0-27.0) mg/dL Creatinine 0.5 L (0.6-1.5) mg/dL Glucose 79 (70-110) mg/dL Calcium 8.2 L (8.7-10.3) mg/dL AST 18 (13-35) U/L ALT 10 (8-44) U/L Alkaline Phosphatase 64 (41-126) U/L Total Protein 4.6 L (6.2-8.2) g/dL Albumin 3.30 L (3.80-4.90) g/dL Calcium panel 10/20/20 Range/Units 06:06 Calcium 8.2 L (8.7-10.3) mg/dL Albumin 3.30 L (3.80-4.90) g/dL Pituitary panel 10/20/20 Range/Units 06:06 Sodium 141 (135-145) mmol/L Potassium 3.8 (3.5-5.5) mmol/L Chloride 109 (96-109) mmol/L Carbon Dioxide 24.1 (21.6-31.8) mmol/L BUN 17.0 (9.0-27.0) mg/dL Creatinine 0.5 L (0.6-1.5) mg/dL Glucose 79 (70-110) mg/dL Calcium 8.2 L (8.7-10.3) mg/dL Adrenal panel 10/20/20 Range/Units 06:06 Sodium 141 (135-145) mmol/L Potassium 3.8 (3.5-5.5) mmol/L Chloride 109 (96-109) mmol/L Carbon Dioxide 24.1 (21.6-31.8) mmol/L BUN 17.0 (9.0-27.0) mg/dL Creatinine 0.5 L (0.6-1.5) mg/dL Glucose 79 (70-110) mg/dL Calcium 8.2 L (8.7-10.3) mg/dL Total Bilirubin 0.7 (0.2-1.2) mg/dL AST 18 (13-35) U/L ALT 10 (8-44) U/L Alkaline Phosphatase 64 (41-126) U/L Total Protein 4.6 L (6.2-8.2) g/dL Albumin 3.30 L (3.80-4.90) g/dL Assessment and Plan Assessment: Probable perforated viscus. Patient will undergo computed tomography scan to evaluate. Patient most likely has a perforated gastric or duodenal ulcer
[2020-10-20] MEDS ORDERED: FLUCONAZOLE IN NACL,ISO-OSM 400 MG in SALINE 1 200ML.BAG IVPB STA (13:20)
[2020-10-20] MEDS ORDERED: LACTATED RINGERS 1,000 ML IV ONE (13:47)
--- NOTE | 2020-10-20 14:17 | P.OP ---
Date of Procedure: 10/20/20 Preoperative Diagnosis: Perforated viscus Postoperative Diagnosis: Perforated prepyloric ulcer Procedure(s) Performed: Exploratory laparotomy Washout of abdominal cavity Gastrorrhaphy Evelio patch Anesthesia: IRVIN Surgeon: Hernán Lake Estimated Blood Loss (ml): 25 Pathology: none sent Condition: stable Disposition: PACU Description of Procedure: The patient's placed on the operative table in the supine position. She received general anesthesia. Her abdomen was prepped and draped usual fashion. A upper midline incision was made and then using cautery subcutaneous tissue divided. The pleural cavity is entered. There is a large amount of gross contamination. Cavity. This was aspirated. The stomach and examined. Stomach appeared normal. At the level of the prepyloric there was a perforated ulcer. There was bile seen entering the ulcer area at this point using 3-0 GI silk the ulcer was oversewn and then a Evelio patch of omentum was secured with 3-0 GI silk. The omentum was divided in the posterior lesser sac was examined. There is no incision any ulcers in this area. The abdomen was irrigated with 6 L normal saline. A KAREEN drains placed over top of the gastric repair brought through separate stab incision in the left upper quadrant. The fascia was closed with looped #1 PDS suture. Skin was closed alysia. Patient top she will was sent to recovery in stable condition.
[2020-10-20] MEDS ORDERED: METOPROLOL TARTRATE 5 MG/5 ML VIAL IVP ONE ×2 (14:25→15:04)
[2020-10-20] MEDS: HYDROmorphone 0.5 MG/0.5 ML SYRINGE IVP ONE ×4 (14:30→15:05)
[2020-10-20] MEDS ORDERED: hydrALAZINE HCL 20 MG/ML 1 ML VIAL IVP ONE (14:41)
--- NOTE | 2020-10-20 16:32 | P.ANPRN ---
Procedure Note - Anesthesia - Nerve Block Performed Bilateral Erector Spinae Single Time Out Performed: Yes Date of Procedure: 10/20/20 Procedure Start Time: 15:55 Procedure Stop Time: 16:12 Location of Patient: Phase I Indication: Acute Post-Operative Pain, Requested by Surgeon Sedation Type: Sedate with meaningful contact maintained Preparation: Sterile Prep Position: Sitting Needle Types: Pajunk Needle Gauge: 21 Ultrasound used to visualize needle placement: Yes Ultrasound used to observe medication spread: Yes Blood Aspirated: No Pain Paresthesia on Injection Noted: No Resistance on Injection: Normal Image Stored and Saved: Yes Events: Uneventful and Well Tolerated (ropi .5% 15 ccplus normal saline pf 15 cc injected bilaterally at t12)
[2020-10-20] MEDS: PIPERACILLIN-TAZOBACTAM 3.375 GM in SODIUM CHLORIDE 0.9% 100 ML IVPB SCH ×2 (18:21→23:43)
[2020-10-20] MEDS: HYDROmorphone 1 MG/ML 1 ML SYRINGE IVP PRN ×2 (19:30→23:50)
--- NOTE | 2020-10-20 22:30 | P.PN ---
Progress Note - Text Progress Note Date: 10/20/20 Chief Complaint: Abdominal pain History of presenting complaint: This is a very pleasant 60-year-old patient of Dr. Dinorah Green. 2 weeks ago patient started having pain in the mid back going across. She noticed that it was then inserted and positioned sitting up otherwise could be present any of the time. She found it better specifically sitting in a chair. Both present on and off. Patient also noticed upper abdominal pain recently. No nausea vomiting. No fever. Appetite is okay. And decided to present. Lipase was slightly elevated in the ER. No fever no chills Today-care was discussed with Dr. Shameka Mercedes from GI. She ordered a computed tomography scan of the abdomen as patient's abdominal findings out of proportion to clinical story. Patient had more abdominal tenderness this morning. Computed tomography scan did come back showing free air. Dr. Lake was consulted. Was taking the patient to the OR. I spoke to the patient and . Review of systems: Was done for constitutional, cardiovascular, GI, pulmonary. 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 Physical examination: VITAL SIGNS: 99, 106, 18, 161/102, 97% room air GENERAL: BMI 24, laying in bed, but uncomfortable EYES: Pupils equal. Conjunctiva normal. HEENT: External appearance of nose and ears normal, oral cavity grossly normal. NECK: JVD not raised; masses not palpable. HEART: First and second heart sounds are normal; no edema. LUNGS: Respiratory rate normal; clear to auscultation. ABDOMEN: Soft, upper abdominal tenderness increased, no guarding rigidity, liver spleen not palpable, no masses palpable. PSYCH: Alert and oriented x3; mood and affect normal. INVESTIGATIONS, reviewed in the clinical context: October 20: White count 12.5 hemoglobin 11.9 potassium 3.8 creatinine 0.5 Computed tomography scan of the abdomen pelvis-free intraperitoneal air with ascites. White count 6.9 hemoglobin 15.3 platelets 404 potassium 3.9 bun 25 creatinine 0.53 Lipase 588 Coronavirus [PCF]-not detected Computed tomography scan of the abdomen pelvis-mild nonspecific free fluid within the abdomen and pelvis. Assessment: -Perforated prepyloric gastric ulcer, patient being taken to the operating room by Dr. Lake -Secondary peritonitis from perforated viscus -Normocytic anemia from above -Elevated lipase secondary to acute abdomen. Not acute pancreatitis -Suspect lumbar osteoarthritis with radiculopathy. Plan: Patient taken to the operating room today. Dr. Lake called me after the surgery,with the findings. Has a KAREEN drain. On IV Zosyn. ID consulted.
[2020-10-20] MEDS: ACETAMINOPHEN IV (For NPO) 1,000 MG in EMPTY BAG 1 BAG IVPB PRN (22:41)
[2020-10-20] MEDS: BENZOCAINE SPRAY 1 CAN MUCOUS MEM PRN (22:42)
[2020-10-21] MEDS ORDERED: ACETAMINOPHEN IV (For NPO) 1,000 MG in EMPTY BAG 1 BAG IVPB SCH
--- NOTE | 2020-10-21 00:17 | CONS ---
CONSULTATION DATE OF SERVICE: 10/20/2020. REASON FOR CONSULTATION: Perforated peptic ulcer disease. HISTORY OF PRESENT ILLNESS: The patient is a 60-year-old female who presented to the hospital on October 18, 2020 for evaluation of abdominal pain. The patient has been complaining of pain that has been going on for the past few days before presentation to the hospital. The patient's pain has been mostly from the described to be sharp in nature almost 7 to 8 out of 10. No radiation. The patient did have some nausea but no vomiting and denies any change in bowel or bladder problem. No chest pain, shortness of breath or cough or any diarrhea. Patient on presentation to the hospital was afebrile and no fever has been recorded since then. The patient did have initial CT of abdomen and pelvis that did not show any abnormality. The patient noticed to have worsening of her abdominal pain this morning, also noticed to have worsening of the white count of 12.58. The patient did have a repeat CT abdomen and pelvis with evidence of pneumoperitoneum and concern for possible perforated gastric ulcer. The patient was taken to the OR, this patient who is status post laparotomy with evidence of a pre- pyloric perforated peptic ulcer disease. The patient is status post abdominal washout and patch. Patient was started on Zosyn and Diflucan. Infectious Disease was consulted for further management of antibiotic therapy. REVIEW OF SYSTEMS: Positive points have been mentioned in HPI. Rest of the systems are negative. PAST MEDICAL HISTORY: Previous history of bowel resection, osteoarthritis. PAST SURGICAL HISTORY: Exploratory laparotomy, total knee arthroscopy. SOCIAL HISTORY: No history of smoking. Occasionally drinks. No drug use. FAMILY HISTORY: No pertinent findings noticed. ALLERGIES: ALLERGIES TO BACTRIM, LISINOPRIL. MEDICATIONS: Include the patient is currently on Tylenol, Colace, Lovenox, Diflucan, Dilaudid, Cozaar, Narcan, Zofran, and Zosyn. PHYSICAL EXAMINATION: Blood pressure 156/83, pulse of 91, temperature is 97, she is 94% on 2 L nasal cannula. General description is a middle-aged female lying in bed in no distress. No tachypnea or accessory muscles of respiration use. HEENT: Shows pallor. No scleral icterus. Oral mucous membranes dry. NECK: Trachea central. No thyromegaly. LUNGS unlabored breathing. Clear to auscultation anteriorly. HEART S1, S2. Regular rate and rhythm. ABDOMEN: Soft. Mildly distended. No guarding. No rigidity. EXTREMITIES: No edema of the feet. SKIN examination: No rash or mass palpable. NEUROLOGICAL: Patient is awake, alert, oriented times three. Mood and affect normal. LABS: Hemoglobin 11.8, white count 12.5. BUN of 17, creatinine 0.5. CT report mentioned above. DIAGNOSTIC IMPRESSION AND PLAN: Patient with secondary peritonitis from perforated peptic ulcer disease in this patient status post laparotomy repair of the perforated peptic ulcer disease and abdominal washout. Will need to cover for the enteric gram-negative, both aerobes and anaerobes as well as yeast. PLAN: 1. Patient is currently covered with Zosyn 3.375 g q.8 hours to continue along with Diflucan 100 mg daily. 2. Gentle IV fluids. 3. We will follow on clinical condition and culture to further adjust medication if needed. Thank you for this consultation. Will follow this patient along with you. MMODL / IJN: [id number] /
[2020-10-21] MEDS: SODIUM CHLORIDE 0.9% 1,000 ML IV SCH ×4 (03:00→23:11)
[2020-10-21] MEDS ORDERED: cloNIDine 0.1 MG/24HR PATCH TRANSDERM SCH (03:45)
[2020-10-21] MEDS: HYDROmorphone 1 MG/ML 1 ML SYRINGE IVP PRN (03:53)
[2020-10-21] MEDS: BENZOCAINE SPRAY 1 CAN MUCOUS MEM PRN (03:54)
[2020-10-21 05:39] LABS: Basophils % (A) 0 %; Eosinophils % (A) 0 %; HCT 40.4 % (34.0-46.0); HGB 12.6 gm/dL (11.4-16.0); Hypochromasia Slight; Lymphocytes # (A) 0.7 k/uL (1.0-4.8); Lymphocytes % (A) 6 %; MCH 30.7 pg (25.0-35.0); MCHC 31.1 g/dL (31.0-37.0); MCV 98.7 fL (80.0-100.0); Mean Platelet Volume 6.6; Monocytes # (A) 0.3 k/uL (0-1.0); Monocytes % (A) 3 %; Neutrophils # (A) 10.8 k/uL (1.3-7.7); Neutrophils % (A) 91 %; Platelet Count 371 k/uL (150-450); RBC 4.09 m/uL (3.80-5.40); RDW 13.4 % (11.5-15.5)
[2020-10-21 05:47] LABS: ALT 43 U/L (4-34); AST 50 U/L (14-36); African American GFR (CKD) >90 (>60 ml/min/1.73 sqM); Albumin 2.9 g/dL (3.5-5.0); Alkaline Phosphatase 68 U/L (38-126); Anion Gap 11 mmol/L; Blood Urea Nitrogen 12 mg/dL (7-17); Calcium 8.3 mg/dL (8.4-10.2); Carbon Dioxide 19 mmol/L (22-30); Chloride 110 mmol/L (98-107); Glucose 86 mg/dL (74-99); Non-African American GFR(CKD) >90 (>60 ml/min/1.73 sqM); Potassium 3.5 mmol/L (3.5-5.1); Sodium 140 mmol/L (137-145); Total Bilirubin 0.7 mg/dL (0.2-1.3); Total Protein 5.5 g/dL (6.3-8.2)
[2020-10-21] MEDS ORDERED: FAMOTIDINE 20 MG/2 ML VIAL IV ONE (07:32)
[2020-10-21] MEDS: LOSARTAN 50 MG TAB PO SCH (07:49)
[2020-10-21] MEDS: PANTOPRAZOLE 40 MG/10 ML VIAL IVP SCH ×2 (07:57→20:00)
[2020-10-21] MEDS: PIPERACILLIN-TAZOBACTAM 3.375 GM in SODIUM CHLORIDE 0.9% 100 ML IVPB SCH ×3 (07:58→23:11)
[2020-10-21] MEDS: ACETAMINOPHEN IV (For NPO) 1,000 MG in EMPTY BAG 1 BAG IVPB PRN (08:10)
[2020-10-21] MEDS: fentaNYL (PF) 50 MCG/ML 2 ML AMP IV ONE ×2 (08:31→08:36)
[2020-10-21] MEDS: MIDAZOLAM 2 MG/2 ML VIAL IVP ONE ×2 (08:31→08:36)
[2020-10-21] MEDS ORDERED: NALBUPHINE 10 MG/ML (1 ML AMP) IV PRN (09:33)
[2020-10-21] MEDS ORDERED: NALOXONE 0.4 MG/ML 1 ML VIAL IV PRN (09:33)
--- NOTE | 2020-10-21 09:54 | P.ANPRN ---
Procedure Note - Anesthesia - Epidural/Spinal Epidural Continuous Time Out Performed: Yes Date of Procedure: 10/21/20 Procedure Start Time: 09:00 Procedure Stop Time: :20 Location of Patient: Phase I Indication: Analgesia, Requested by Surgeon Sedation Type: Sedate with meaningful contact maintained Preparation: Sterile Dressing Number of Attempts: 3 (inital attempt when patient in left lateral position and unsuccessful. patien then transitioned to supine ) Position: Supine Catheter Depth at Skin (cm): 12 Catheter: Indwelling Needle Guage: 21 Injectate: Test Dose Lidocaine1.5% w/1:200,000 epi Blood Aspirated: No Pain Paresthesia on Injection Noted: No Events: Other (see comment) (on inital attempt epidural catheter was passed without difficulty but causing dysesthesia on the right groin. epidural catheter and touhy removed intact and another attempt was successfully done at T11-T12)
[2020-10-21] MEDS: ROPIVACAINE 250 MG, HYDROMORPHONE (PF) 5 MG in SODIUM CHLORIDE 0.9% 200 ML EPIDURAL PRN (10:16)
[2020-10-21] MEDS ORDERED: hydrALAZINE HCL 20 MG/ML 1 ML VIAL IVP PRN (11:58)
--- NOTE | 2020-10-21 13:47 | P.PN ---
Subjective Progress Note Date: 10/21/20 Principal diagnosis: Nausea and vomiting, abdominal pain This is a 60-year-old female who was admitted to the hospital with severe back pain radiating in the epigastric area for last 3-4 days duration. On admission she was noted to have mild elevation of lipase consistent with mild pancreatitis. Yesterday part of her evaluation included CT of the abdomen which showed a perforated viscus which she underwent an exploratory laparotomy, gastrorrhaphy, and Evelio patch. Patient underwent epidural placement. Objective - Vital Signs Vital signs: Vital Signs Temp 98.2 F 10/21/20 08:00 Pulse 106 H 10/21/20 10:34 Resp 16 10/21/20 10:34 BP 169/89 10/21/20 13:09 Pulse Ox 97 10/21/20 10:34 Intake & Output 10/20/20 10/21/20 10/21/20 18:59 06:59 18:59 Intake Total 1200 5 Output Total 655 1355 200 Balance 545 -1355 -195 Intake: IV 1200 5 Output: Gastric Drainage 200 Drainage 80 155 Abdomen 80 155 Urine 550 1200 Estimated Blood Loss 25 Other: Voiding Method Indwelling Catheter Indwelling Catheter # Bowel Movements 1 - Exam General appearance: The patient is alert, oriented, appears in no acute distress. HET: Head is normocephalic and atraumatic. Conjunctiva pink. Sclera anicteric. Neck: Supple without lymphadenopathy. Abdomen: Soft, nontender, nondistended with bowel sounds. No guarding or rigidity. Extremities: Normal skin color and turgor. No pedal edema Skin: No rashes, no jaundice Neurological: No focal deficits. Alert and oriented 3. - Labs CBC & Chem 7: 10/21/20 05:21 10/21/20 05:21 Labs: Abnormal Lab Results - Last 24 Hours (Table) 10/21/20 10/21/20 Range/Units 05:21 05:21 WBC 12.0 H (3.8-10.6) k/uL Neutrophils # 10.8 H (1.3-7.7) k/uL Lymphocytes # 0.7 L (1.0-4.8) k/uL Chloride 110 H (98-107) mmol/L Carbon Dioxide 19 L (22-30) mmol/L Creatinine 0.45 L (0.52-1.04) mg/dL Calcium 8.3 L (8.4-10.2) mg/dL AST 50 H (14-36) U/L ALT 43 H (4-34) U/L Total Protein 5.5 L (6.3-8.2) g/dL Albumin 2.9 L (3.5-5.0) g/dL Assessment and Plan Assessment: 1. Severe epigastric pain radiating to the back extending into the left shoulder area. Who underwent exploratory laparotomy yesterday and Found to have a perforated prepyloric ulcer. 2. Elevated lipase, probably nonspecific, which has been normalized Plan: 1. Supportive care 2. Diet per surgical recommendations 3. Repeat CBC and CMP in the morning 4. Continue antibiotics as ordered Thank You for this consultation we will continue to follow closely Dr. Shameka Mercedes I agree with the dictator's note, documented as a scribe by Catairna Weaver.
--- NOTE | 2020-10-21 13:53 | P.PN ---
Subjective Progress Note Date: 10/21/20 CHIEF COMPLAINT: Abdominal pain HISTORY OF PRESENT ILLNESS: Patient is followed for her perforated prepyloric ulcer status post exploratory laparotomy, washout of abdominal cavity, gastrorrhaphy and Evelio patch. Patient had epidural placed today. She reports that her pain is controlled. She had been complaining of the NG tube bothering her throat earlier. Per nursing staff they have been coiled. NG tube was adjusted per nursing staff. Patient reports improvement where had irritated her throat. She denies any nausea. She reports passing a small amount of gas and a small bowel movement. Afebrile. Heart rate 106. Patient has been hypertensive. Blood pressure medication adjusted per medicine service. PHYSICAL EXAM: VITAL SIGNS: Reviewed. GENERAL: Well-developed in no acute distress. HEENT: No sclera icterus. Extraocular movements grossly intact. Moist buccal mucosa. Head is atraumatic, normocephalic. ABDOMEN: Soft. Mildly distended. Incision dressing 2 areas saturated with blood. KAREEN drain with serosanguineous fluid. NEUROLOGIC: Alert and oriented. Cranial nerves II through XII grossly intact. ASSESSMENT: 1. Perforated prepyloric ulcer status post exploratory laparotomy, washout of abdominal cavity, gastrorrhaphy and Evelio patch. Postop day #1 PLAN: -Continue NG tube -Keep patient nothing by mouth -Continue IV fluids at 125 mL per hour -Continue antibiotics -Continue epidural for pain control -Hypertension treatment per medicine service -GI prophylaxis Protonix and DVT prophylaxis subcu heparin Physician Facility Maintenance Helper note has been reviewed by physician. Signing provider agrees with the documented findings, assessment, and plan of care. Objective - Vital Signs Vital signs: Vital Signs Temp 98.2 F 10/21/20 08:00 Pulse 106 H 10/21/20 10:34 Resp 16 10/21/20 10:34 BP 169/89 10/21/20 13:09 Pulse Ox 97 10/21/20 10:34 Intake & Output 10/20/20 10/21/20 10/21/20 18:59 06:59 18:59 Intake Total 1200 5 Output Total 655 1355 200 Balance 545 -1355 -195 Intake: IV 1200 5 Output: Gastric Drainage 200 Drainage 80 155 Abdomen 80 155 Urine 550 1200 Estimated Blood Loss 25 Other: Voiding Method Indwelling Catheter Indwelling Catheter # Bowel Movements 1 - Labs CBC & Chem 7: 10/21/20 05:21 10/21/20 05:21 Labs: Abnormal Lab Results - Last 24 Hours (Table) 10/21/20 10/21/20 Range/Units 05:21 05:21 WBC 12.0 H (3.8-10.6) k/uL Neutrophils # 10.8 H (1.3-7.7) k/uL Lymphocytes # 0.7 L (1.0-4.8) k/uL Chloride 110 H (98-107) mmol/L Carbon Dioxide 19 L (22-30) mmol/L Creatinine 0.45 L (0.52-1.04) mg/dL Calcium 8.3 L (8.4-10.2) mg/dL AST 50 H (14-36) U/L ALT 43 H (4-34) U/L Total Protein 5.5 L (6.3-8.2) g/dL Albumin 2.9 L (3.5-5.0) g/dL
[2020-10-21] MEDS: FLUCONAZOLE IN NACL,ISO-OSM 200 MG in SALINE 1 100ML.BAG IVPB SCH (15:30)
--- NOTE | 2020-10-21 20:21 | P.PN ---
Subjective Subjective: 10/21/2020 This is a pleasant 60 years old female who presents because of abdominal pain secondary to perforated peptic ulcer and abdominal abscesses the surrounding area status post exploratory laparotomy with abdominal washout and has a roughly by surgical team and today is postoperative day #1. Patient was sitting up in bed not in distress feels comfortable with some pain at the surgical site which is expected. She is tolerating by mouth. Surgical site with a dressing and a place and currently is covered with broad-spectrum antibiotics Zosyn and fluconazole as well as IV Protonix. Continue with normal saline at 1 25 mL/h for surgery team recommendation, and continue with hydralazine IV and clonidine for hypertension as patient is currently nothing by mouth Patient is followed closely by several consultants including infectious disease, surgical team, candy counter clerk. CONSTITUTIONAL: No fever, no malaise, no fatigue. HEENT: No recent visual problems or hearing problems. Denied any sore throat. CARDIOVASCULAR: No orthopnea, PND, no palpitations, no syncope. PULMONARY: No shortness of breath, no cough, no hemoptysis. GASTROINTESTINAL: No diarrhea, no nausea, no vomiting, Normoactive bowel sounds. Active Medications Generic Name Dose Route Start Last Admin Trade Name Freq PRN Reason Stop Dose Admin Acetaminophen 650 mg 10/19/20 07:22 10/20/20 08:44 Acetaminophen Tab 325 Mg Tab PO 650 mg Q4HR PRN Administration Fever and/ or Pain Benzocaine 1 spray 10/20/20 22:00 10/21/20 03:54 Benzocaine [place] 1 Can MUCOUS MEM 1 spray QID PRN Administration Mouth Irritation Clonidine HCl 1 patch 10/21/20 03:45 10/21/20 03:51 Clonidine 0.1 Mg/24hr Patch TRANSDERM 1 patch Q7D LESTER Administration Diphenhydramine HCl 25 mg 10/21/20 09:33 Diphenhydramine 50 Mg/Ml 1 Ml Vial IVP Q6HR PRN Itching Docusate Sodium 100 mg 10/18/20 14:47 Docusate 100 Mg Cap PO BID PRN Constipation Heparin Sodium (Porcine) 5,000 unit 10/22/20 08:00 Heparin Sodium,Porcine 5,000 Unit/Ml 1 Ml Vial SQ Q8HR LESTER Hydralazine HCl 10 mg 10/21/20 20:11 Hydralazine Hcl 20 Mg/Ml 1 Ml Vial IVP Q6HR PRN Blood Pressure - High Hydromorphone HCl 1 mg 10/20/20 14:11 10/21/20 03:53 Hydromorphone 1 Mg/Ml 1 Ml Syringe IVP 1 mg Q3HR PRN Administration Pain Sodium Chloride 1,000 mls @ 125 mls/hr 10/18/20 15:00 10/21/20 18:57 Saline 0.9% IV 125 mls/hr .Q8H LESTER Administration Piperacillin Sod/Tazobactam 100 mls @ 25 mls/hr 10/20/20 16:00 10/21/20 15:31 Sod 3.375 gm/ Sodium Chloride IVPB 25 mls/hr Q8HR [facility] Administration Fluconazole/Sodium Chloride 100 mls @ 100 mls/hr 10/21/20 14:00 10/21/20 15:30 200 mg/ IV Solution IVPB 100 mls/hr DAILY@1400 [facility] Administration Ropivacaine 250 mg/ 250 mls @ 0 mls/hr 10/21/20 09:33 10/21/20 10:16 Hydromorphone HCl 5 mg/ Sodium EPIDURAL 5 mls Chloride .Q0M PRN Administration Pain Control Protocol Per Protocol Losartan Potassium 50 mg 10/19/20 09:00 10/21/20 07:49 Losartan 50 Mg Tab PO Not Given DAILY [facility] Morphine Sulfate 4 mg 10/18/20 14:47 Morphine Sulfate 4 Mg/Ml Syringe IV Q4HR PRN Severe Pain Nalbuphine HCl 2.5 mg 10/21/20 09:33 Nalbuphine 10 Mg/Ml (1 Ml Amp) IV Q4HR PRN Itching Naloxone HCl 0.2 mg 10/18/20 14:47 Naloxone 0.4 Mg/Ml 1 Ml Vial IV Q2M PRN Opioid Reversal Ondansetron HCl 4 mg 10/18/20 14:47 Ondansetron 4 Mg/2 Ml Vial IVP Q8HR PRN Nausea And Vomiting Pantoprazole Sodium 40 mg 10/19/20 11:15 10/21/20 20:00 Pantoprazole 40 Mg/10 Ml Vial IVP 40 mg BID LESTER Administration Objective - Vital Signs Vital signs: Vital Signs Temp 98.2 F 10/21/20 08:00 Pulse 106 H 10/21/20 10:34 Resp 16 02/15/21 10:34 BP 169/89 10/21/20 13:09 Pulse Ox 97 10/21/20 10:34 Intake & Output 10/20/20 10/21/20 10/21/20 18:59 06:59 18:59 Intake Total 1200 5 Output Total 655 1355 200 Balance 545 -1355 -195 Intake: IV 1200 5 Output: Gastric Drainage 200 Drainage 80 155 Abdomen 80 155 Urine 550 1200 Estimated Blood Loss 25 Other: Voiding Method Indwelling Catheter Indwelling Catheter # Bowel Movements 1 - Exam GENERAL: The patient is alert and oriented x3, not in any acute distress. Well developed, well nourished. HEENT: Pupils are round and equally reacting to light. EOMI. No scleral icterus. No conjunctival pallor. Normocephalic, atraumatic. No pharyngeal erythema. No thyromegaly. CARDIOVASCULAR: S1 and S2 present. No murmurs, rubs, or gallops. PULMONARY: Chest is clear to auscultation, no wheezing or crackles. -ABDOMEN: Soft, surgical site tenderness, nondistended, normoactive bowel sounds. No palpable organomegaly. Dressing is in a Place and wound looks closed MUSCULOSKELETAL: No joint swelling or deformity. EXTREMITIES: No cyanosis, clubbing, or pedal edema. NEUROLOGICAL: Gross neurological examination did not reveal any focal deficits. SKIN: No rashes. no petechiae. - Labs CBC & Chem 7: 10/21/20 05:21 10/21/20 05:21 Labs: Abnormal Lab Results - Last 24 Hours (Table) 10/21/20 10/21/20 Range/Units 05:21 05:21 WBC 12.0 H (3.8-10.6) k/uL Neutrophils # 10.8 H (1.3-7.7) k/uL Lymphocytes # 0.7 L (1.0-4.8) k/uL Chloride 110 H (98-107) mmol/L Carbon Dioxide 19 L (22-30) mmol/L Creatinine 0.45 L (0.52-1.04) mg/dL Calcium 8.3 L (8.4-10.2) mg/dL AST 50 H (14-36) U/L ALT 43 H (4-34) U/L Total Protein 5.5 L (6.3-8.2) g/dL Albumin 2.9 L (3.5-5.0) g/dL Assessment and Plan Assessment: Perforated peptic ulcer status post exploratory laparotomy and abdominal washout and gastrorrhaphy Secondary bacterial peritonitis secondary to above Uncontrolled hypertension Plan: This is a pleasant 60 years old female who presents with perforated peptic ulcer status post exploratory laparotomy. Continue with broad-spectrum antibiotics as per infectious disease recommendation. Surgical primary team on the case and there, and continue with IV fluids for now. Continue with antihypertensive med ication including hydralazine as needed. Also continue with Protonix IV twice daily. Patient is followed by several consultants including surgical team, infectious disease, gastroenterology Labs and medication were reviewed.. Continue same treatment. Continue with symptomatic treatment. Resume home medication. Monitor lytes and vitals. DVT and GI prophylaxis. Further recommendationsas per clinical course of the patient DVT prophylaxis: Subcutaneous heparin GI Prophylaxis: Ppi
--- NOTE | 2020-10-21 23:41 | PN ---
PROGRESS NOTE DATE OF SERVICE: 10/21/2020 REASON FOR FOLLOWUP: Perforated peptic ulcer disease. INTERVAL HISTORY: Patient is currently afebrile. The patient is breathing slightly comfortably. The patient's abdominal pain is currently controlled. Denies having any chest pain. No shortness of breath or cough. PHYSICAL EXAMINATION: Blood pressure 151/90 with a pulse of 111. Temperature 98.3. He is 99% on 2 L nasal cannula. General description is a middle-aged female lying in bed in no distress. Respiratory system: Unlabored breathing. Clear to auscultation anteriorly. Heart S1, S2. Regular rate and rhythm. ABDOMEN: Soft. No tenderness. LABS: Hemoglobin is 12.6, white count 12.7, BUN of 12, creatinine 0.45. DIAGNOSTIC IMPRESSION AND PLAN: Patient with acute abdominal pain in this patient who did have a perforated peptic ulcer disease, status post laparotomy and repair of the perforation. Patient is covered with Zosyn and Diflucan to continue and monitor clinical course closely. Continue supportive care. MMODL / IJN: [id number] /
[2020-10-22] MEDS: hydrALAZINE HCL 20 MG/ML 1 ML VIAL IVP PRN ×3 (03:34→20:03)
[2020-10-22] MEDS: SODIUM CHLORIDE 0.9% 1,000 ML IV SCH ×3 (06:06→19:59)
[2020-10-22] MEDS: PIPERACILLIN-TAZOBACTAM 3.375 GM in SODIUM CHLORIDE 0.9% 100 ML IVPB SCH ×3 (08:50→23:01)
[2020-10-22] MEDS: HEPARIN SODIUM,PORCINE 5,000 UNIT/ML 1 ML VIAL SQ SCH ×3 (08:50→23:01)
[2020-10-22] MEDS: PANTOPRAZOLE 40 MG/10 ML VIAL IVP SCH ×2 (08:50→19:58)
[2020-10-22] MEDS: LOSARTAN 50 MG TAB PO SCH (08:50)
[2020-10-22] MEDS: diphenhydrAMINE 50 MG/ML 1 ML VIAL IVP PRN ×3 (09:06→23:10)
[2020-10-22 09:31] LABS: Basophils % (A) 0 %; Eosinophils # (A) 0.1 k/uL (0-0.7); Eosinophils % (A) 1 %; HCT 38.1 % (34.0-46.0); HGB 11.5 gm/dL (11.4-16.0); Hypochromasia Moderate; Lymphocytes # (A) 0.6 k/uL (1.0-4.8); Lymphocytes % (A) 7 %; MCH 30.4 pg (25.0-35.0); MCHC 30.3 g/dL (31.0-37.0); MCV 100.4 fL (80.0-100.0); Mean Platelet Volume 6.9; Monocytes # (A) 0.4 k/uL (0-1.0); Monocytes % (A) 5 %; Neutrophils # (A) 8.2 k/uL (1.3-7.7); Neutrophils % (A) 87 %; Platelet Count 381 k/uL (150-450); RDW 13.3 % (11.5-15.5); WBC 9.4 k/uL (3.8-10.6)
[2020-10-22 09:38] LABS: African American GFR (CKD) >90 (>60 ml/min/1.73 sqM); Anion Gap 12 mmol/L; Blood Urea Nitrogen 8 mg/dL (7-17); Calcium 8.5 mg/dL (8.4-10.2); Carbon Dioxide 18 mmol/L (22-30); Chloride 114 mmol/L (98-107); Glucose 70 mg/dL (74-99); Non-African American GFR(CKD) >90 (>60 ml/min/1.73 sqM); Potassium 3.2 mmol/L (3.5-5.1); Sodium 144 mmol/L (137-145)
--- NOTE | 2020-10-22 10:03 | P.PN ---
Progress Note - Text Progress Note Date: 10/22/20 60 yo female s/p Exploratory laparotomy POD#2 and epidural day #2. Thoracic epidural with Ropivacaine and Dilaudid 20mcq at 5ml hr. VAS 0/10 at rest and movement. No back pain, no motor/sensory deficits. norton in place. Pt NPO. Plan is to continue epidural at current settings.
--- NOTE | 2020-10-22 11:03 | P.PN ---
Subjective Progress Note Date: 10/22/20 CHIEF COMPLAINT: Abdominal pain HISTORY OF PRESENT ILLNESS: Patient is followed for her perforated prepyloric ulcer status post exploratory laparotomy, washout of abdominal cavity, gastrorrhaphy and Evelio patch. Patient's pain is controlled with epidural. She had been complaining of the NG tube bothering her throat. She denies any nausea. She reports passing a small amount of gas. Afebrile. She denies any BM. She has been tachycardic and hypertensive. Afebrile. WBC 9.4 Hgb 11.5 potassium 3.2 CO2 18 creatinine 0.45 patient does have NG tube in place with dark greenish output. PHYSICAL EXAM: VITAL SIGNS: Reviewed. GENERAL: Well-developed in no acute distress. HEENT: No sclera icterus. Extraocular movements grossly intact. Moist buccal mucosa. Head is atraumatic, normocephalic. ABDOMEN: Soft. Mildly distended. Incision site clean dry and intact KAREEN drain with serosanguineous fluid. NEUROLOGIC: Alert and oriented. Cranial nerves II through XII grossly intact. ASSESSMENT: 1. Perforated prepyloric ulcer status post exploratory laparotomy, washout of abdominal cavity, gastrorrhaphy and Evelio patch. Postop day #2 2. Hypokalemia PLAN: -Replace potassium -Continue NG tube -Keep patient nothing by mouth -Continue IV fluids at 125 mL per hour -Continue antibiotics -Continue epidural for pain control -Hypertension treatment per medicine service -GI prophylaxis Protonix and DVT prophylaxis subcu heparin Physician Pilot Teacher note has been reviewed by physician. Signing provider agrees with the documented findings, assessment, and plan of care. Objective - Vital Signs Vital signs: Vital Signs Temp 99.1 F 10/22/20 08:45 Pulse 110 H 10/22/20 08:45 Resp 18 10/22/20 08:45 BP 186/108 10/22/20 08:45 Pulse Ox 97 10/22/20 08:45 Intake & Output 10/21/20 10/22/20 10/22/20 18:59 06:59 18:59 Intake Total 5 1690 Output Total 1530 7803 1245 Balance -7343 -9872 -1244 Weight 63.503 kg Intake: IV 5 Intake, IV Titration 1690 Amount ACETAMINOPHEN IV (For NPO 100 ) 1,000 mg In Empty Bag 1 bag @ 400 mls/hr IVPB Q6HR PRN Rx#:[id number] Fluconazole in NaCl,Iso- 100 Osm 200 mg In Saline 1 100ml.bag @ 100 mls/hr IVPB DAILY@1400 [facility] Rx#: [id number] Piperacillin-Tazobactam 3 200 .375 gm In Sodium Chloride 0.9% 100 ml @ 25 mls/hr IVPB Q8HR [facility] Rx# :[id number] Sodium Chloride 0.9% 1, 1290 000 ml @ 125 mls/hr IV . Q8H [facility] Rx#:[id number] Oral 0 0 Output: Gastric Drainage 200 60 Drainage 30 83 45 Abdomen 30 83 45 Urine 1300 2750 1200 Other: Voiding Method Indwelling Catheter Indwelling Catheter Indwelling Catheter - Labs CBC & Chem 7: 10/22/20 08:18 10/22/20 08:18 Labs: Abnormal Lab Results - Last 24 Hours (Table) 10/22/20 10/22/20 Range/Units 08:18 08:18 MCV 100.4 H (80.0-100.0) fL MCHC 30.3 L (31.0-37.0) g/dL Neutrophils # 8.2 H (1.3-7.7) k/uL Lymphocytes # 0.6 L (1.0-4.8) k/uL Potassium 3.2 L (3.5-5.1) mmol/L Chloride 114 H (98-107) mmol/L Carbon Dioxide 18 L (22-30) mmol/L Creatinine 0.45 L (0.52-1.04) mg/dL Glucose 70 L (74-99) mg/dL Microbiology - Last 24 Hours (Table) 10/21/20 05:21 Blood Culture - Preliminary Blood No Growth after 24 hours
--- NOTE | 2020-10-22 12:38 | P.PN ---
Subjective Subjective: 10/21/2020 This is a pleasant 60 years old female who presents because of abdominal pain secondary to perforated peptic ulcer and abdominal abscesses the surrounding area status post exploratory laparotomy with abdominal washout and has a roughly by surgical team and today is postoperative day #1. Patient was sitting up in bed not in distress feels comfortable with some pain at the surgical site which is expected. She is tolerating by mouth. Surgical site with a dressing and a place and currently is covered with broad-spectrum antibiotics Zosyn and fluconazole as well as IV Protonix. Continue with normal saline at 1 25 mL/h for surgery team recommendation, and continue with hydralazine IV and clonidine for hypertension as patient is currently nothing by mouth Patient is followed closely by several consultants including infectious disease, surgical team, casket assembler. 10/22/2020 Patient is a pleasant 60 was admitted for a perforated peptic ulcer status post gastrorrhaphy by surgery team, KAREEN drain is in place. Today is postoperative day #2. Patient still has an NG tube with a drain about 100 mL of dark brown secretions this morning and 35 mL overnight, Patient not in distress and abdominal pain is controlled however she is complaining of from generalized itchiness 1 Benadryl was provided, she presents little gas. She has uncontrolled high blood pressure 186/108 She is on IV hydralazine as needed, also will increase her clonidine patch from 0.1 up to 0.3 CBC showed normal WBC today, BMP is unremarkable except for mild hypokalemia. Patient is currently on normal saline at 125 mL per hour plus fluconazole, Zosyn, IV Protonix twice daily Objective - Vital Signs Vital signs: Vital Signs Temp 99.1 F 10/22/20 08:45 Pulse 110 H 10/22/20 08:45 Resp 18 10/22/20 08:45 BP 186/108 10/22/20 08:45 Pulse Ox 97 10/22/20 08:45 Intake & Output 10/21/20 10/22/20 10/22/20 18:59 06:59 18:59 Intake Total 5 1690 Output Total 1537 0383 1249 Balance -3049 -2454 -9677 Weight 63.503 kg Intake: IV 5 Intake, IV Titration 1690 Amount ACETAMINOPHEN IV (For NPO 100 ) 1,000 mg In Empty Bag 1 bag @ 400 mls/hr IVPB Q6HR PRN Rx#:[id number] Fluconazole in NaCl,Iso- 100 Osm 200 mg In Saline 1 100ml.bag @ 100 mls/hr IVPB DAILY@1400 [facility] Rx#: [id number] Piperacillin-Tazobactam 3 200 .375 gm In Sodium Chloride 0.9% 100 ml @ 25 mls/hr IVPB Q8HR [facility] Rx# :[id number] Sodium Chloride 0.9% 1, 1290 000 ml @ 125 mls/hr IV . Q8H [facility] Rx#:[id number] Oral 0 0 Output: Gastric Drainage 200 60 Drainage 30 83 45 Abdomen 30 83 45 Urine 1300 2750 1200 Other: Voiding Method Indwelling Catheter Indwelling Catheter Indwelling Catheter - Exam GENERAL: The patient is alert and oriented x3, not in any acute distress. Well developed, well nourished. HEENT: Pupils are round and equally reacting to light. EOMI. No scleral icterus. No conjunctival pallor. Normocephalic, atraumatic. No pharyngeal erythema. No thyromegaly. CARDIOVASCULAR: S1 and S2 present. No murmurs, rubs, or gallops. PULMONARY: Chest is clear to auscultation, no wheezing or crackles. -ABDOMEN: Soft, surgical site tenderness, nondistended, normoactive bowel sounds. No palpable organomegaly. Dressing is in a Place and wound looks closed MUSCULOSKELETAL: No joint swelling or deformity. EXTREMITIES: No cyanosis, clubbing, or pedal edema. NEUROLOGICAL: Gross neurological examination did not reveal any focal deficits. SKIN: No rashes. no petechiae. - Labs CBC & Chem 7: 10/22/20 08:18 10/22/20 08:18 Labs: Abnormal Lab Results - Last 24 Hours (Table) 10/22/20 10/22/20 Range/Units 08:18 08:18 MCV 100.4 H (80.0-100.0) fL MCHC 30.3 L (31.0-37.0) g/dL Neutrophils # 8.2 H (1.3-7.7) k/uL Lymphocytes # 0.6 L (1.0-4.8) k/uL Potassium 3.2 L (3.5-5.1) mmol/L Chloride 114 H (98-107) mmol/L Carbon Dioxide 18 L (22-30) mmol/L Creatinine 0.45 L (0.52-1.04) mg/dL Glucose 70 L (74-99) mg/dL Microbiology - Last 24 Hours (Table) 10/21/20 05:21 Blood Culture - Preliminary Blood No Growth after 24 hours Assessment and Plan Assessment: Perforated peptic ulcer status post exploratory laparotomy and abdominal washout and gastrorrhaphy Secondary bacterial peritonitis secondary to above Uncontrolled hypertension Plan: This is a pleasant 60 years old female who presents with perforated peptic ulcer status post exploratory laparotomy. Continue with broad-spectrum antibiotics as per infectious disease recommendation. Surgical primary team on the case and there, and continue with IV fluids for now. Continue with antihypertensive medication including hydralazine as needed. Also continue with Protonix IV twice daily. Patient is followed by several consultants including surgical team, infectious disease, gastroenterology Labs and medication were reviewed.. Continue same treatment. Continue with symptomatic treatment. Resume home medication. Monitor lytes and vitals. DVT and GI prophylaxis. Further recommendationsas per clinical course of the patient DVT prophylaxis: Subcutaneous heparin GI Prophylaxis: Ppi
[2020-10-22] MEDS ORDERED: cloNIDine 0.3 MG/24HR PATCH TRANSDERM SCH (13:00)
[2020-10-22] MEDS: POTASSIUM CHLORIDE 20 MEQ in WATER FOR INJECTION 1 100ML.BAG IVPB SCH ×2 (13:01→15:48)
--- NOTE | 2020-10-22 13:26 | P.PN ---
Subjective Progress Note Date: 10/22/20 CHIEF COMPLAINT: Abdominal pain HISTORY OF PRESENT ILLNESS: Patient is followed for her perforated prepyloric ulcer status post exploratory laparotomy, washout of abdominal cavity, gastrorrhaphy and Evelio patch. Patient's pain is controlled with epidural. She had been complaining of the NG tube bothering her throat. She denies any nausea. She reports passing a small amount of gas. Afebrile. She denies any BM. She has been tachycardic and hypertensive. Afebrile. WBC 9.4 Hgb 11.5 potassium 3.2 CO2 18 creatinine 0.45 patient does have NG tube in place with dark greenish output. PHYSICAL EXAM: VITAL SIGNS: Reviewed. GENERAL: Well-developed in no acute distress. HEENT: No sclera icterus. Extraocular movements grossly intact. Moist buccal mucosa. Head is atraumatic, normocephalic. ABDOMEN: Soft. Mildly distended. Incision site clean dry and intact KAREEN drain with serosanguineous fluid. NEUROLOGIC: Alert and oriented. Cranial nerves II through XII grossly intact. ASSESSMENT: 1. Perforated prepyloric ulcer status post exploratory laparotomy, washout of abdominal cavity, gastrorrhaphy and Evelio patch. Postop day #2 2. Hypokalemia PLAN: -Replace potassium -Continue NG tube -Keep patient nothing by mouth -Continue IV fluids at 125 mL per hour -Continue antibiotics -Continue epidural for pain control -Hypertension treatment per medicine service -GI prophylaxis Protonix and DVT prophylaxis subcu heparin Physician Ski Maker Wood note has been reviewed by physician. Signing provider agrees with the documented findings, assessment, and plan of care. Objective - Vital Signs Vital signs: Vital Signs Temp 99.1 F 10/22/20 08:45 Pulse 110 H 10/22/20 08:45 Resp 18 10/22/20 08:45 BP 186/108 10/22/20 08:45 Pulse Ox 97 10/22/20 08:45 Intake & Output 10/21/20 10/22/20 10/22/20 18:59 06:59 18:59 Intake Total 5 1690 Output Total 1530 3333 1245 Balance -4821 -3871 -124 Weight 63.503 kg Intake: IV 5 Intake, IV Titration 1690 Amount ACETAMINOPHEN IV (For NPO 100 ) 1,000 mg In Empty Bag 1 bag @ 400 mls/hr IVPB Q6HR PRN Rx#:[id number] Fluconazole in NaCl,Iso- 100 Osm 200 mg In Saline 1 100ml.bag @ 100 mls/hr IVPB DAILY@1400 [facility] Rx#: [id number] Piperacillin-Tazobactam 3 200 .375 gm In Sodium Chloride 0.9% 100 ml @ 25 mls/hr IVPB Q8HR [facility] Rx# :[id number] Sodium Chloride 0.9% 1, 1290 000 ml @ 125 mls/hr IV . Q8H [facility] Rx#:[id number] Oral 0 0 Output: Gastric Drainage 200 60 Drainage 30 83 45 Abdomen 30 83 45 Urine 1300 2750 1200 Other: Voiding Method Indwelling Catheter Indwelling Catheter Indwelling Catheter - Labs CBC & Chem 7: 10/22/20 08:18 10/22/20 08:18 Labs: Abnormal Lab Results - Last 24 Hours (Table) 10/22/20 10/22/20 Range/Units 08:18 08:18 MCV 100.4 H (80.0-100.0) fL MCHC 30.3 L (31.0-37.0) g/dL Neutrophils # 8.2 H (1.3-7.7) k/uL Lymphocytes # 0.6 L (1.0-4.8) k/uL Potassium 3.2 L (3.5-5.1) mmol/L Chloride 114 H (98-107) mmol/L Carbon Dioxide 18 L (22-30) mmol/L Creatinine 0.45 L (0.52-1.04) mg/dL Glucose 70 L (74-99) mg/dL Microbiology - Last 24 Hours (Table) 10/21/20 05:21 Blood Culture - Preliminary Blood No Growth after 24 hours
[2020-10-22] MEDS: FLUCONAZOLE IN NACL,ISO-OSM 200 MG in SALINE 1 100ML.BAG IVPB SCH (15:49)
--- NOTE | 2020-10-22 16:41 | P.PN ---
Subjective Progress Note Date: 10/22/20 Principal diagnosis: Nausea and vomiting, abdominal pain This is a 60-year-old female who was admitted to the hospital with severe back pain radiating in the epigastric area for last 3-4 days duration. On admission she was noted to have mild elevation of lipase consistent with mild pancreatitis. On admission part of her evaluation included CT of the abdomen which showed a perforated prepyloric ulcer. She is post op day #2 for a post exploratory laparotomy, washout of abdominal cavity, gastrorrhaphy and Evelio patch. Patient underwent epidural placement yesterday for pain management. She states NG tube is bothering her, but abdominal pain improved. She is passing fl atus but no bowel movement yet. She remains NPO. Objective - Vital Signs Vital signs: Vital Signs Temp 99.1 F 10/22/20 08:45 Pulse 110 H 10/22/20 08:45 Resp 18 10/22/20 08:45 BP 186/108 10/22/20 08:45 Pulse Ox 97 10/22/20 08:45 Intake & Output 10/21/20 10/22/20 10/22/20 18:59 06:59 18:59 Intake Total 5 1690 Output Total 1530 2893 2445 Balance -1525 -1203 -2445 Weight 63.503 kg Intake: IV 5 Intake, IV Titration 1690 Amount ACETAMINOPHEN IV (For NPO 100 ) 1,000 mg In Empty Bag 1 bag @ 400 mls/hr IVPB Q6HR PRN Rx#:[id number] Fluconazole in NaCl,Iso- 100 Osm 200 mg In Saline 1 100ml.bag @ 100 mls/hr IVPB DAILY@1400 [facility] Rx#: [id number] Piperacillin-Tazobactam 3 200 .375 gm In Sodium Chloride 0.9% 100 ml @ 25 mls/hr IVPB Q8HR [facility] Rx# :[id number] Sodium Chloride 0.9% 1, 1290 000 ml @ 125 mls/hr IV . Q8H [facility] Rx#:[id number] Oral 0 0 Output: Gastric Drainage 200 60 Drainage 30 83 45 Abdomen 30 83 45 Urine 1300 2750 2400 Other: Voiding Method Indwelling Catheter Indwelling Catheter Indwelling Catheter - Exam General appearance: The patient is alert, oriented, appears in no acute distress. HET: Head is normocephalic and atraumatic. Conjunctiva pink. Sclera anicteric.NG tube intact. Neck: Supple without lymphadenopathy. Abdomen: Soft, nontender, nondistended with bowel sounds. No guarding or rigidity. Extremities: Normal skin color and turgor. No pedal edema Skin: No rashes, no jaundice Neurological: No focal deficits. Alert and oriented 3. - Labs CBC & Chem 7: 10/22/20 08:18 10/22/20 08:18 Labs: Abnormal Lab Results - Last 24 Hours (Table) 10/22/20 10/22/20 Range/Units 08:18 08:18 MCV 100.4 H (80.0-100.0) fL MCHC 30.3 L (31.0-37.0) g/dL Neutrophils # 8.2 H (1.3-7.7) k/uL Lymphocytes # 0.6 L (1.0-4.8) k/uL Potassium 3.2 L (3.5-5.1) mmol/L Chloride 114 H (98-107) mmol/L Carbon Dioxide 18 L (22-30) mmol/L Creatinine 0.45 L (0.52-1.04) mg/dL Glucose 70 L (74-99) mg/dL Microbiology - Last 24 Hours (Table) 10/21/20 05:21 Blood Culture - Preliminary Blood No Growth after 24 hours Assessment and Plan Assessment: 1. Severe epigastric pain radiating to the back extending into the left shou lder area. Post op day #2 for her perforated prepyloric ulcer status post exploratory laparotomy, washout of abdominal cavity, gastrorrhaphy and Evelio patch. 2. Elevated lipase, probably nonspecific, which has been normalized Plan: 1. Supportive care 2. Diet per surgical recommendations 3. Repeat CBC and CMP in the morning 4. Continue antibiotics as ordered 5. Continue protonix 6. Continue medical management per primary team Thank You for this consultation we will continue to follow Dr. Shameka Mercedes I agree with the dictator's note, documented as a scribe by Catarina Weaver.
[2020-10-22] MEDS ORDERED: Potassium Replacement Protocol 1 EACH MISC MISCELLANE PRN (22:03)
[2020-10-22] MEDS ORDERED: Magnesium Replacement Protocol 1 EACH MISC MISCELLANE PRN (22:03)
--- NOTE | 2020-10-22 22:12 | PN ---
PROGRESS NOTE DATE OF SERVICE: 10/22/2020 REASON FOR FOLLOWUP: Perforated peptic ulcer disease with secondary peritonitis. INTERVAL HISTORY: The patient is currently afebrile. The patient is breathing comfortably. Abdominal pain is currently controlled. No chest pain, shortness of breath or cough. Still has the NG tube, which is currently with the patient. PHYSICAL EXAMINATION: Blood pressure 156/82, pulse of 119, temperature 97.8. She is 95% on 2 L nasal cannula. General description is a middle-aged female lying in bed in no distress. RESPIRATORY SYSTEM: Unlabored breathing. Clear to auscultation. HEART: S1, S2. Regular rate and rhythm. A ABDOMEN: Soft. tenderness. No guarding or rigidity. LABS: Hemoglobin is 11.5, white count 9.4, BUN of 8, creatinine 0.45. DIAGNOSTIC IMPRESSION AND PLAN: Patient with secondary peritonitis from perforated peptic ulcer disease, status post operative repair. Patient is covered with Zosyn and Diflucan; to continue while monitoring her clinical course closely. White count has normalized. at the bedside. Questions were answered. MMODL / IJN: [id number] /
[2020-10-23] MEDS: ROPIVACAINE 250 MG, HYDROMORPHONE (PF) 5 MG in SODIUM CHLORIDE 0.9% 200 ML EPIDURAL PRN (01:31)
[2020-10-23] MEDS: hydrALAZINE HCL 20 MG/ML 1 ML VIAL IVP PRN ×3 (03:14→19:56)
[2020-10-23] MEDS: SODIUM CHLORIDE 0.9% 1,000 ML IV SCH ×3 (03:18→23:30)
[2020-10-23 08:10] LABS: Basophils % (A) 1 %; Eosinophils # (A) 0.1 k/uL (0-0.7); Eosinophils % (A) 1 %; HCT 39.4 % (34.0-46.0); HGB 12.3 gm/dL (11.4-16.0); Hypochromasia Moderate; Lymphocytes # (A) 0.6 k/uL (1.0-4.8); Lymphocytes % (A) 7 %; MCH 31.1 pg (25.0-35.0); MCHC 31.2 g/dL (31.0-37.0); MCV 99.8 fL (80.0-100.0); Mean Platelet Volume 6.7; Monocytes # (A) 0.5 k/uL (0-1.0); Monocytes % (A) 6 %; Neutrophils # (A) 7.4 k/uL (1.3-7.7); Neutrophils % (A) 85 %; Platelet Count 419 k/uL (150-450); RBC 3.95 m/uL (3.80-5.40); RDW 13.5 % (11.5-15.5); WBC 8.7 k/uL (3.8-10.6)
[2020-10-23 08:26] LABS: ALT 30 U/L (4-34); AST 33 U/L (14-36); African American GFR (CKD) >90 (>60 ml/min/1.73 sqM); Albumin 3.3 g/dL (3.5-5.0); Alkaline Phosphatase 79 U/L (38-126); Anion Gap 14 mmol/L; Bilirubin, Delta 0.5 mg/dL (0.0-0.2); Bilirubin,Unconjugated 0.3 mg/dL (0.0-1.1); Blood Urea Nitrogen 6 mg/dL (7-17); Carbon Dioxide 16 mmol/L (22-30); Chloride 114 mmol/L (98-107); Glucose 93 mg/dL (74-99); Magnesium 1.9 mg/dL (1.6-2.3); Non-African American GFR(CKD) >90 (>60 ml/min/1.73 sqM); Potassium 3.1 mmol/L (3.5-5.1); Sodium 144 mmol/L (137-145); Total Bilirubin 0.8 mg/dL (0.2-1.3)
[2020-10-23] MEDS ORDERED: Potassium Replacement Protocol 1 EACH MISC MISCELLANE PRN (08:57)
[2020-10-23] MEDS: PIPERACILLIN-TAZOBACTAM 3.375 GM in SODIUM CHLORIDE 0.9% 100 ML IVPB SCH ×3 (09:03→23:29)
[2020-10-23] MEDS: HEPARIN SODIUM,PORCINE 5,000 UNIT/ML 1 ML VIAL SQ SCH ×3 (09:03→23:29)
[2020-10-23] MEDS: diphenhydrAMINE 50 MG/ML 1 ML VIAL IVP PRN ×2 (09:03→23:29)
[2020-10-23] MEDS: LOSARTAN 50 MG TAB PO SCH (09:03)
[2020-10-23] MEDS: PANTOPRAZOLE 40 MG/10 ML VIAL IVP SCH ×2 (09:03→19:55)
--- NOTE | 2020-10-23 09:16 | P.PN ---
Subjective Progress Note Date: 10/23/20 Principal diagnosis: Nausea and vomiting, abdominal pain This is a 60-year-old female who was admitted to the hospital with severe back pain radiating in the epigastric area for last 3-4 days duration. On admission she was noted to have mild elevation of lipase consistent with mild pancreatitis. On admission part of her evaluation included CT of the abdomen which showed a perforated prepyloric ulcer. She is post op day #3 for a post exploratory laparotomy, washout of abdominal cavity, gastrorrhaphy and Evelio patch. Patient underwent epidural placement for pain management. She states NG tubecontinues to bother her. She is getting small amount of output. She denies any nausea or vomiting. She is passing flatus but no bowel movement yet. She remains NPO. No acute changes through the night. Objective - Vital Signs Vital signs: Vital Signs Temp 97.5 F L 10/23/20 03:50 Pulse 110 H 10/23/20 03:50 Resp 20 10/23/20 03:50 BP 166/84 10/23/20 04:00 Pulse Ox 96 10/23/20 03:50 Intake & Output 10/22/20 10/23/20 10/23/20 18:59 06:59 18:59 Intake Total 33.5 Output Total 3245 2375 1100 Balance -3245 -2341.5 -1100 Weight 63.503 kg Intake: Intake, IV Titration 33.5 Amount Ropivacaine 250 mg 33.5 Hydromorphone (Pf) 5 mg In Sodium Chloride 0.9% 200 ml @ Per Protocol EPIDURAL .Q0M PRN Rx#: [id number] Oral 0 Output: Drainage 45 200 Abdomen 45 200 Urine 3200 2175 1100 Other: Voiding Method Indwelling Catheter Indwelling Catheter - Exam General appearance: The patient is alert, oriented, appears in no acute distress. HET: Head is normocephalic and atraumatic. Conjunctiva pink. Sclera anicteric.NG tube intact. Neck: Supple without lymphadenopathy. Abdomen: Soft, nontender, nondistended with bowel sounds. No guarding or rigidity. Dressing clean dry and intact. Extremities: Normal skin color and turgor. No pedal edema Skin: No rashes, no jaundice Neurological: No focal deficits. Alert and oriented 3. - Labs CBC & Chem 7: 10/23/20 07:48 10/23/20 07:48 Labs: Abnormal Lab Results - Last 24 Hours (Table) 10/22/20 10/22/20 10/23/20 Range/Units 08:18 08:18 07:48 MCV 100.4 H (80.0-100.0) fL MCHC 30.3 L (31.0-37.0) g/dL Neutrophils # 8.2 H (1.3-7.7) k/uL Lymphocytes # 0.6 L 0.6 L (1.0-4.8) k/uL Potassium 3.2 L (3.5-5.1) mmol/L Chloride 114 H (98-107) mmol/L Carbon Dioxide 18 L (22-30) mmol/L BUN (7-17) mg/dL Creatinine 0.45 L (0.52-1.04) mg/dL Glucose 70 L (74-99) mg/dL Delta Bilirubin (0.0-0.2) mg/dL Total Protein (6.3-8.2) g/dL Albumin (3.5-5.0) g/dL 10/23/20 Range/Units 07:48 MCV (80.0-100.0) fL MCHC (31.0-37.0) g/dL Neutrophils # (1.3-7.7) k/uL Lymphocytes # (1.0-4.8) k/uL Potassium 3.1 L (3.5-5.1) mmol/L Chloride 114 H (98-107) mmol/L Carbon Dioxide 16 L (22-30) mmol/L BUN 6 L (7-17) mg/dL Creatinine 0.43 L (0.52-1.04) mg/dL Glucose (74-99) mg/dL Delta Bilirubin 0.5 H (0.0-0.2) mg/dL Total Protein 6.0 L (6.3-8.2) g/dL Albumin 3.3 L (3.5-5.0) g/dL Microbiology - Last 24 Hours (Table) 10/21/20 05:21 Blood Culture - Preliminary Blood No Growth after 48 hours Assessment and Plan Assessment: 1. Severe epigastric pain radiating to the back extending into the left shoulder area. Post op day #3 for her perforated prepyloric ulcer status post exploratory laparotomy, washout of abdominal cavity, gastrorrhaphy and Evelio patch. 2. Elevated lipase, probably nonspecific, which has been normalized Plan: 1. Supportive care 2. Diet per surgical recommendations 3. Repeat CBC and CMP in the morning 4. Continue antibiotics as ordered 5. Continue Protonix 40 mg BID 6. Continue medical management per primary team 7. Patient advised to follow-up in 2-3 months for repeat EGD Thank You for this consultation we will sign off at this time Dr. Shameka Mercedes I agree with the dictator's note, documented as a scribe by Catarina Weaver.
[2020-10-23] MEDS: POTASSIUM CHLORIDE 10 MEQ in WATER FOR INJECTION 1 100ML.BAG IVPB SCH ×4 (10:10→15:12)
--- NOTE | 2020-10-23 12:53 | P.PN ---
Subjective Progress Note Date: 10/23/20 CHIEF COMPLAINT: Abdominal pain HISTORY OF PRESENT ILLNESS: Patient is followed for her perforated prepyloric ulcer status post exploratory laparotomy, washout of abdominal cavity, gastrorrhaphy and Evelio patch. Patient's epidural was increased to 6 yesterday. Her pain is controlled. She is still complaining of irritation from the NG tube. Dr. cheung has had the NG tube removed. Patient has been in sinus tach and having elevated blood pressures. Medicine service is following. Patient is passing gas. No bowel movement. She denies any nausea. Afebrile. WBC 8.7 potassium 3.1 KAREEN drain with 100 mL of serosanguineous output PHYSICAL EXAM: VITAL SIGNS: Reviewed. GENERAL: Well-developed in no acute distress. HEENT: No sclera icterus. Extraocular movements grossly intact. Moist buccal mucosa. Head is atraumatic, normocephalic. ABDOMEN: Soft. Nondistended. Incision site clean dry and intact KAREEN drain with serosanguineous fluid. NEUROLOGIC: Alert and oriented. Cranial nerves II through XII grossly intact. ASSESSMENT: 1. Perforated prepyloric ulcer status post exploratory laparotomy, washout of abdominal cavity, gastrorrhaphy and Evelio patch. Postop day #3 2. Hypokalemia PLAN: -NG tube discontinued -Patient is nothing by mouth except for ice chips and popsicles -Replace potassium -Continue IV fluids at 125 mL per hour -Continue antibiotics -Continue epidural for pain control -Hypertension treatment per medicine service -GI prophylaxis Protonix and DVT prophylaxis subcu heparin Physician Glue Line Operator note has been reviewed by physician. Signing provider agrees with the documented findings, assessment, and plan of care. Objective - Vital Signs Vital signs: Vital Signs Temp 98.1 F 10/23/20 09:00 Pulse 101 H 10/23/20 09:00 Resp 20 10/23/20 09:00 BP 186/103 10/23/20 09:00 Pulse Ox 96 10/23/20 09:00 Intake & Output 10/22/20 10/23/20 10/23/20 18:59 06:59 18:59 Intake Total 33.5 Output Total 5949 8372 1848 Balance -3245 -2341.5 -1842 Weight 63.503 kg Intake: Intake, IV Titration 33.5 Amount Ropivacaine 250 mg 33.5 Hydromorphone (Pf) 5 mg In Sodium Chloride 0.9% 200 ml @ Per Protocol EPIDURAL .Q0M PRN Rx#: [id number] Oral 0 Output: Drainage 45 200 42 Abdomen 45 200 42 Urine 3200 2175 1800 Other: Voiding Method Indwelling Catheter Indwelling Catheter Indwelling Catheter - Labs CBC & Chem 7: 10/23/20 07:48 10/23/20 07:48 Labs: Abnormal Lab Results - Last 24 Hours (Table) 10/23/20 10/23/20 Range/Units 07:48 07:48 Lymphocytes # 0.6 L (1.0-4.8) k/uL Potassium 3.1 L (3.5-5.1) mmol/L Chloride 114 H (98-107) mmol/L Carbon Dioxide 16 L (22-30) mmol/L BUN 6 L (7-17) mg/dL Creatinine 0.43 L (0.52-1.04) mg/dL Delta Bilirubin 0.5 H (0.0-0.2) mg/dL Total Protein 6.0 L (6.3-8.2) g/dL Albumin 3.3 L (3.5-5.0) g/dL Microbiology - Last 24 Hours (Table) 10/21/20 05:21 Blood Culture - Preliminary Blood No Growth after 48 hours
[2020-10-23] MEDS: FLUCONAZOLE IN NACL,ISO-OSM 200 MG in SALINE 1 100ML.BAG IVPB SCH (15:12)
--- NOTE | 2020-10-23 15:41 | PN ---
PROGRESS NOTE DATE OF SERVICE: 10/23/2020 REASON FOR FOLLOWUP: Perforated peptic ulcer disease and peritonitis. INTERVAL HISTORY: The patient is currently afebrile. The patient is feeling better. The patient's abdominal pain is currently controlled. Denies having any chest pain or shortness of breath or cough. PHYSICAL EXAMINATION: Blood pressure 186/100 with a pulse of 101, temperature 98.1. She is 96% on 2 L nasal cannula. General description is a middle-aged female lying in bed in no distress. RESPIRATORY SYSTEM: Unlabored breathing. Clear to auscultation anteriorly. HEART: S1, S2. Regular rate and rhythm. ABDOMEN: Soft. Mildly distended. No guarding or rigidity. LABS: Hemoglobin is 12.3, white count 8.7, BUN of 6, creatinine 0.43. Blood culture negative. DIAGNOSTIC IMPRESSION AND PLAN: Patient with secondary peritonitis from perforated peptic ulcer disease, status post operative repair. Patient is currently covered with Zosyn and Diflucan; to continue and monitor clinical course closely. MMODL / IJN: [id number] /
--- NOTE | 2020-10-23 16:59 | P.PN ---
Progress Note - Text Date: 10/23/2020 Time: 171 The patient is status post, exploratory laparotomy, postoperative day number 3, epidural placement day #2. The patient has no complaints of nausea vomiting or headache. The patient does not complain of any lower extremity numbness or weakness. The epidural is running at 6 mL per hour. VAS 0-10. The epidural will be maintained and adjusted as needed. The epidural will be discontinued sometime tomorrow.
--- NOTE | 2020-10-23 18:29 | P.PN ---
Subjective Subjective: 10/21/2020 This is a pleasant 60 years old female who presents because of abdominal pain secondary to perforated peptic ulcer and abdominal abscesses the surrounding area status post exploratory laparotomy with abdominal washout and has a roughly by surgical team and today is postoperative day #1. Patient was sitting up in bed not in distress feels comfortable with some pain at the surgical site which is expected. She is tolerating by mouth. Surgical site with a dressing and a place and currently is covered with broad-spectrum antibiotics Zosyn and fluconazole as well as IV Protonix. Continue with normal saline at 1 25 mL/h for surgery team recommendation, and continue with hydralazine IV and clonidine for hypertension as patient is currently nothing by mouth Patient is followed closely by several consultants including infectious disease, surgical team, remedial masseur. 10/22/2020 Patient is a pleasant 60 was admitted for a perforated peptic ulcer status post gastrorrhaphy by surgery team, KAREEN drain is in place. Today is postoperative day #2. Patient still has an NG tube with a drain about 100 mL of dark brown secretions this morning and 35 mL overnight, Patient not in distress and abdominal pain is controlled however she is complaining of from generalized itchiness 1 Benadryl was provided, she presents little gas. She has uncontrolled high blood pressure 186/108 She is on IV hydralazine as needed, also will increase her clonidine patch from 0.1 up to 0.3 CBC showed normal WBC today, BMP is unremarkable except for mild hypokalemia. Patient is currently on normal saline at 125 mL per hour plus fluconazole, Zosyn, IV Protonix twice daily 10/23/2020 Patient is with perforated peptic ulcer status post exploratory laparotomy with gastrorrhaphy. Today is postop day #3 Patients with minimal abdominal pain, NG tube is still in place with the less amount of distal dark-colored secretions continue. Possibly it will be discontinued today per surgery team. Patient is passing a lot of gas is but no bowel movement Hemodynamically she is a stable with some tachycardia, blood pressure is still elevated 180/98, clonidine patch has been increased to 0.3 mg but also she is on normal saline at 125 mL/h per surgery team recommendation, also she is on hydralazine 10 mg as needed Labs show normal CBC. Low potassium was replaced. Rest of basic metabolic panel and hepatic function tests are within normal limits. Objective - Vital Signs Vital signs: Vital Signs Temp 98.1 F 10/23/20 09:00 Pulse 101 H 10/23/20 09:00 Resp 20 10/23/20 09:00 BP 186/103 10/23/20 09:00 Pulse Ox 96 10/23/20 09:00 Intake & Output 10/22/20 10/23/20 10/23/20 18:59 06:59 18:59 Intake Total 33.5 Output Total 3245 2375 1842 Balance -3245 -2341.5 -1842 Weight 63.503 kg Intake: Intake, IV Titration 33.5 Amount Ropivacaine 250 mg 33.5 Hydromorphone (Pf) 5 mg In Sodium Chloride 0.9% 200 ml @ Per Protocol EPIDURAL .Q0M PRN Rx#: [id number] Oral 0 Output: Drainage 45 200 42 Abdomen 45 200 42 Urine 3200 2175 1800 Other: Voiding Method Indwelling Catheter Indwelling Catheter Indwelling Catheter - Exam GENERAL: The patient is alert and oriented x3, not in any acute distress. Well developed, well nourished. HEENT: Pupils are round and equally reacting to light. EOMI. No scleral icterus. No conjunctival pallor. Normocephalic, atraumatic. No pharyngeal erythema. No thyromegaly. CARDIOVASCULAR: S1 and S2 present. No murmurs, rubs, or gallops. PULMONARY: Chest is clear to auscultation, no wheezing or crackles. -ABDOMEN: Soft, surgical site tenderness, nondistended, normoactive bowel sounds. No palpable organomegaly. Dressing is in a Place and wound looks closed MUSCULOSKELETAL: No joint swelling or deformity. EXTREMITIES: No cyanosis, clubbing, or pedal edema. NEUROLOGICAL: Gross neurological examination did not reveal any focal deficits. SKIN: No rashes. no petechiae. - Labs CBC & Chem 7: 10/23/20 07:48 10/23/20 07:48 Labs: Abnormal Lab Results - Last 24 Hours (Table) 10/23/20 10/23/20 Range/Units 07:48 07:48 Lymphocytes # 0.6 L (1.0-4.8) k/uL Potassium 3.1 L (3.5-5.1) mmol/L Chloride 114 H (98-107) mmol/L Carbon Dioxide 16 L (22-30) mmol/L BUN 6 L (7-17) mg/dL Creatinine 0.43 L (0.52-1.04) mg/dL Delta Bilirubin 0.5 H (0.0-0.2) mg/dL Total Protein 6.0 L (6.3-8.2) g/dL Albumin 3.3 L (3.5-5.0) g/dL Microbiology - Last 24 Hours (Table) 10/21/20 05:21 Blood Culture - Preliminary Blood No Growth after 48 hours Assessment and Plan Assessment: Perforated peptic ulcer status post exploratory laparotomy and abdominal washout and gastrorrhaphy Secondary bacterial peritonitis secondary to above Uncontrolled hypertension Plan: This is a pleasant 60 years old female who presents with perforated peptic ulcer status post exploratory laparotomy. Continue with broad-spectrum antibiotics as per infectious disease recommendation. Patient is currently is on Zosyn and fluconazole. Surgical primary team on the case and there, and continue with IV fluids for now. Continue with antihypertensive medication including hydralazine as needed. Also continue with Protonix IV twice daily. Continue with clonidine and as needed hydralazine for high blood pressure Patient is followed by several consultants including surgical team, infectious disease, gastroenterology Labs and medication were reviewed.. Continue same treatment. Continue with symptomatic treatment. Resume home medication. Monitor lytes and vitals. DVT and GI prophylaxis. Further recommendationsas per clinical course of the [place] DVT prophylaxis: Subcutaneous heparin GI Prophylaxis: Ppi
[2020-10-24] MEDS: SODIUM CHLORIDE 0.9% 1,000 ML IV SCH ×3 (03:42→20:47)
[2020-10-24] MEDS: hydrALAZINE HCL 20 MG/ML 1 ML VIAL IVP PRN ×2 (03:46→09:12)
[2020-10-24] MEDS: ROPIVACAINE 250 MG, HYDROMORPHONE (PF) 5 MG in SODIUM CHLORIDE 0.9% 200 ML EPIDURAL PRN (06:04)
[2020-10-24 08:03] LABS: Basophils % (A) 1 %; Eosinophils # (A) 0.4 k/uL (0-0.7); Eosinophils % (A) 4 %; HCT 37.1 % (34.0-46.0); HGB 11.8 gm/dL (11.4-16.0); Lymphocytes # (A) 0.9 k/uL (1.0-4.8); Lymphocytes % (A) 11 %; MCH 30.9 pg (25.0-35.0); MCHC 31.9 g/dL (31.0-37.0); MCV 96.7 fL (80.0-100.0); Mean Platelet Volume 6.7; Monocytes # (A) 0.6 k/uL (0-1.0); Monocytes % (A) 7 %; Neutrophils # (A) 6.5 k/uL (1.3-7.7); Neutrophils % (A) 76 %; Platelet Count 468 k/uL (150-450); RBC 3.83 m/uL (3.80-5.40); RDW 13.4 % (11.5-15.5); WBC 8.5 k/uL (3.8-10.6)
[2020-10-24 08:31] LABS: African American GFR (CKD) >90 (>60 ml/min/1.73 sqM); Anion Gap 11 mmol/L; Blood Urea Nitrogen 5 mg/dL (7-17); Calcium 8.9 mg/dL (8.4-10.2); Carbon Dioxide 23 mmol/L (22-30); Chloride 111 mmol/L (98-107); Glucose 96 mg/dL (74-99); Magnesium 1.7 mg/dL (1.6-2.3); Non-African American GFR(CKD) >90 (>60 ml/min/1.73 sqM); Sodium 145 mmol/L (137-145)
[2020-10-24 08:49] LABS: Potassium 2.7 mmol/L (3.5-5.1)
[2020-10-24] MEDS: PANTOPRAZOLE 40 MG/10 ML VIAL IVP SCH (09:13)
[2020-10-24] MEDS: HEPARIN SODIUM,PORCINE 5,000 UNIT/ML 1 ML VIAL SQ SCH ×3 (09:13→23:14)
[2020-10-24] MEDS: PIPERACILLIN-TAZOBACTAM 3.375 GM in SODIUM CHLORIDE 0.9% 100 ML IVPB SCH ×3 (09:13→23:23)
[2020-10-24] MEDS: POTASSIUM CHLORIDE 10 MEQ in WATER FOR INJECTION 1 100ML.BAG IVPB SCH ×7 (09:14→20:16)
[2020-10-24] MEDS: LOSARTAN 50 MG TAB PO SCH (09:23)
--- NOTE | 2020-10-24 11:22 | P.PN ---
Subjective Progress Note Date: 10/24/20 CHIEF COMPLAINT: Abdominal pain HISTORY OF PRESENT ILLNESS: Patient is followed for her perforated prepyloric ulcer status post exploratory laparotomy, washout of abdominal cavity, gastrorrhaphy and Evelio patch. Patient's epidural scheduled to be discontinued today. She denies any abdominal pain. She denies any nausea or vomiting. Patient's sinus tachycardia has been better. She still having elevated blood pressures. Medicine service is following. Patient is passing gas. No bowel movement. Afebrile. WBC 8.5 Hgb 11.8 potassium 2.7 magnesium 1.7. KAREEN drain with 170 mL of serosanguineous output PHYSICAL EXAM: VITAL SIGNS: Reviewed. GENERAL: Well-developed in no acute distress. HEENT: No sclera icterus. Extraocular movements grossly intact. Moist buccal mucosa. Head is atraumatic, normocephalic. ABDOMEN: Soft. Nondistended. Incision site clean dry and intact KAREEN drain with serosanguineous fluid. NEUROLOGIC: Alert and oriented. Cranial nerves II through XII grossly intact. ASSESSMENT: 1. Perforated prepyloric ulcer status post exploratory laparotomy, washout of abdominal cavity, gastrorrhaphy and Evelio patch. Postop day #4 2. Hypokalemia 3. Hypomagnesemia PLAN: -Advance diet to full liquids -potassium and magnesium being replaced by medicine service -Continue IV fluids -Continue antibiotics -Epidural and Hughes catheter scheduled to be discontinued today -IV Dilaudid as needed for pain -Hypertension treatment per medicine service -Encourage patient to ambulate and use incentive spirometer. -GI prophylaxis Protonix and DVT prophylaxis subcu heparin Physician Tanker Truck Driver note has been reviewed by physician. Signing provider agrees with the documented findings, assessment, and plan of care. Objective - Vital Signs Vital signs: Vital Signs Temp 98 F 10/24/20 08:20 Pulse 103 H 10/24/20 08:20 Resp 16 10/24/20 08:20 BP 173/91 10/24/20 08:20 Pulse Ox 96 10/24/20 08:20 Intake & Output 10/23/20 10/24/20 10/24/20 18:59 06:59 18:59 Intake Total 411.3 0 Output Total 2892 1195 1170 Balance -2892 -783.7 -1170 Weight 75.5 kg Intake: Intake, IV Titration 171.3 Amount Ropivacaine 250 mg 171.3 Hydromorphone (Pf) 5 mg In Sodium Chloride 0.9% 200 ml @ Per Protocol EPIDURAL .Q0M PRN Rx#: [id number] Oral 240 0 Output: Drainage 42 120 70 Abdomen 42 120 70 Urine 2850 1075 1100 Other: Voiding Method Indwelling Catheter Indwelling Catheter Indwelling Catheter - Labs CBC & Chem 7: 10/24/20 07:35 10/24/20 07:35 Labs: Abnormal Lab Results - Last 24 Hours (Table) 10/24/20 10/24/20 Range/Units 07:35 07:35 Plt Count 468 H (150-450) k/uL Lymphocytes # 0.9 L (1.0-4.8) k/uL Potassium 2.7 L* (3.5-5.1) mmol/L Chloride 111 H (98-107) mmol/L BUN 5 L (7-17) mg/dL Creatinine 0.42 L (0.52-1.04) mg/dL Microbiology - Last 24 Hours (Table) 10/21/20 05:21 Blood Culture - Preliminary Blood No Growth after 72 hours
[2020-10-24] MEDS: MAGNESIUM SULFATE-D5W PMX 1 GM in DEXTROSE/WATER 1 100ML.BAG IVPB SCH ×2 (12:02→13:22)
[2020-10-24] MEDS: FLUCONAZOLE IN NACL,ISO-OSM 200 MG in SALINE 1 100ML.BAG IVPB SCH (15:43)
[2020-10-24] MEDS: HYDROmorphone 1 MG/ML 1 ML SYRINGE IVP PRN ×3 (16:56→23:22)
[2020-10-24] MEDS: PANTOPRAZOLE 40 MG TABLET PO SCH (20:17)
--- NOTE | 2020-10-24 22:19 | P.PN ---
Subjective Progress Note Date: 10/24/20 10/21/2020 This is a pleasant 60 years old female who presents because of abdominal pain secondary to perforated peptic ulcer and abdominal abscesses the surrounding area status post exploratory laparotomy with abdominal washout and has a roughly by surgical team and today is postoperative day #1. Patient was sitting up in bed not in distress feels comfortable with some pain at the surgical site which is expected. She is tolerating by mouth. Surgical site with a dressing and a place and currently is covered with broad- spectrum antibiotics Zosyn and fluconazole as well as IV Protonix. Continue with normal saline at 1 25 mL/h for surgery team recommendation, and continue with hydralazine IV and clonidine for hypertension as patient is currently nothing by mouth Patient is followed closely by several consultants including infectious disease, surgical team, supervisor metal fabricating. 10/22/2020 Patient is a pleasant 60 was admitted for a perforated peptic ulcer status post gastrorrhaphy by surgery team, KAREEN drain is in place. Today is postoperative day #2. Patient still has an NG tube with a drain about 100 mL of dark brown secretions this morning and 35 mL overnight, Patient not in distress and abdominal pain is controlled however she is complaining of from generalized itchiness 1 Benadryl was provided, she presents little gas. She has uncontrolled high blood pressure 186/108 She is on IV hydralazine as needed, also will increase her clonidine patch from 0.1 up to 0.3 CBC showed normal WBC today, BMP is unremarkable except for mild hypokalemia. Patient is currently on normal saline at 125 mL per hour plus fluconazole, Zosyn, IV Protonix twice daily 10/23/2020 Patient is with perforated peptic ulcer status post exploratory laparotomy with gastrorrhaphy. Today is postop day #3 Patients with minimal abdominal pain, NG tube is still in place with the less amount of distal dark-colored secretions continue. Possibly it will be discontinued today per surgery team. Patient is passing a lot of gas is but no bowel movement Hemodynamically she is a stable with some tachycardia, blood pressure is still elevated 180/98, clonidine patch has been increased to 0.3 mg but also she is on normal saline at 125 mL/h per surgery team recommendation, also she is on hydralazine 10 mg as needed Labs show normal CBC. Low potassium was replaced. Rest of basic metabolic panel and hepatic function tests are within normal limits. 10/24/2020 Patient is currently lying in the bed comfortably. Pain is controlled and epidural has been discontinued. Patient was started on full liquid diet and NG tube has been discontinued. No complaints of chest pain or shortness of breath. PT OT was consulted. Continued on antibiotics in the form of Zosyn. Blood pressure is elevated and is currently Catapres patch along with hydralazine as needed. We will introduce oral blood pressure medications as the patient tolerates diet. Patient was found to have severely hypokalemic with potassium level 2.7 and is being replaced with six bags of potassium and magnesium as well. Follow-up CBC and BMP tomorrow. Active Medications Generic Name Dose Route Start Last Admin Trade Name Freq PRN Reason Stop Dose Admin Acetaminophen 650 mg 10/19/20 07:22 10/20/20 08:44 Acetaminophen Tab 325 Mg Tab PO 650 mg Q4HR PRN Administration Fever and/ or Pain Benzocaine 1 spray 10/20/20 22:00 10/21/20 03:54 Benzocaine [place] 1 Can MUCOUS MEM 1 spray QID PRN Administration Mouth Irritation Clonidine HCl 1 patch 10/22/20 13:00 10/22/20 14:36 Clonidine 0.3 Mg/24hr Patch TRANSDERM 1 patch Q7D LESTER Administration Diphenhydramine HCl 25 mg 10/21/20 09:33 10/23/20 23:29 Diphenhydramine 50 Mg/Ml 1 Ml Vial IVP 25 mg Q6HR PRN Administration Itching Docusate Sodium 100 mg 10/18/20 14:47 Docusate 100 Mg Cap PO BID PRN Constipation Heparin Sodium (Porcine) 5,000 unit 10/22/20 08:00 10/24/20 16:55 Heparin Sodium,Porcine 5,000 Unit/Ml 1 Ml Vial SQ 5,000 unit Q8HR LESTER Administration Hydralazine HCl 10 mg 10/21/20 20:11 10/24/20 09:12 Hydralazine Hcl 20 Mg/Ml 1 Ml Vial IVP 10 mg Q6HR PRN Administration Blood Pressure - High Hydromorphone HCl 1 mg 10/20/20 14:11 10/24/20 20:17 Hydromorphone 1 Mg/Ml 1 Ml Syringe IVP 1 mg Q3HR PRN Administration Pain Sodium Chloride 1,000 mls @ 125 mls/hr 10/18/20 15:00 10/24/20 20:47 Saline 0.9% IV 125 mls/hr .Q8H LESTER Administration Piperacillin Sod/Tazobactam 100 mls @ 25 mls/hr 10/20/20 16:00 10/24/20 16:57 Sod 3.375 gm/ Sodium Chloride IVPB 25 mls/hr Q8HR LESTER Administration Fluconazole/Sodium Chloride 100 mls @ 100 mls/hr 10/21/20 14:00 10/24/20 15:43 200 mg/ IV Solution IVPB 100 mls/hr DAILY@1400 LESTER Administration Ropivacaine 250 mg/ 250 mls @ 0 mls/hr 10/21/20 09:33 10/24/20 06:04 Hydromorphone HCl 5 mg/ Sodium EPIDURAL 6 mls/hr Chloride .Q0M PRN Administration Pain Control Protocol Per Protocol Losartan Potassium 50 mg 10/19/20 09:00 10/24/20 09:23 Losartan 50 Mg Tab PO 50 mg DAILY LESTER Administration Miscellaneous Information 1 each 10/22/20 22:03 Magnesium Replacement Protocol 1 Each Misc MISCELLANE DAILY PRN Per Protocol Protocol Miscellaneous Information 1 each 10/22/20 22:03 Potassium Replacement Protocol 1 Each Misc MISCELLANE DAILY PRN Per Protocol Protocol Miscellaneous Information 1 each 10/23/20 08:57 Potassium Replacement Protocol 1 Each Misc MISCELLANE DAILY PRN Per Protocol Protocol Morphine Sulfate 4 mg 10/18/20 14:47 Morphine Sulfate 4 Mg/Ml Syringe IV Q4HR PRN Severe Pain Nalbuphine HCl 2.5 mg 10/21/20 09:33 Nalbuphine 10 Mg/Ml (1 Ml Amp) IV Q4HR PRN Itching Naloxone HCl 0.2 mg 10/18/20 14:47 Naloxone 0.4 Mg/Ml 1 Ml Vial IV Q2M PRN Opioid Reversal Ondansetron HCl 4 mg 10/18/20 14:47 Ondansetron 4 Mg/2 Ml Vial IVP Q8HR PRN Nausea And Vomiting Pantoprazole Sodium 40 mg 10/24/20 21:00 10/24/20 20:17 Pantoprazole 40 Mg Tablet PO 40 mg BID LESTER Administration Objective - Vital Signs Vital signs: Vital Signs Temp 98.2 F 10/24/20 13:09 Pulse 99 10/24/20 13:09 Resp 16 10/24/20 13:09 BP 160/94 10/24/20 13:09 Pulse Ox 95 10/24/20 13:09 Intake & Output 10/23/20 10/24/20 10/24/20 18:59 06:59 18:59 Intake Total 411.3 600 Output Total 2892 1195 1170 Balance -2892 -783.7 -570 Weight 75.5 kg Intake: Intake, IV Titration 171.3 Amount Ropivacaine 250 mg 171.3 Hydromorphone (Pf) 5 mg In Sodium Chloride 0.9% 200 ml @ Per Protocol EPIDURAL .Q0M PRN Rx#: [id number] Oral 240 600 Output: Drainage 42 120 70 Abdomen 42 120 70 Urine 2850 1075 1100 Other: Voiding Method Indwelling Catheter Indwelling Catheter Indwelling Catheter - Exam - Exam GENERAL: The patient is alert and oriented x3, not in any acute distress. Well developed, well nourished. HEENT: Pupils are round and equally reacting to light. EOMI. No scleral icterus. No conjunctival pallor. Normocephalic, atraumatic. No pharyngeal erythema. No thyromegaly. CARDIOVASCULAR: S1 and S2 present. No murmurs, rubs, or gallops. PULMONARY: Chest is clear to auscultation, no wheezing or crackles. -ABDOMEN: Soft, surgical site tenderness, nondistended, normoactive bowel sounds. No palpable organomegaly. Dressing is in a Place and wound looks closed MUSCULOSKELETAL: No joint swelling or deformity. EXTREMITIES: No cyanosis, clubbing, or pedal edema. NEUROLOGICAL: Gross neurological examination did not reveal any focal deficits. SKIN: No rashes. no petechiae. - Labs CBC & Chem 7: 10/24/20 07:35 10/24/20 07:35 Labs: Abnormal Lab Results - Last 24 Hours (Table) 10/24/20 10/24/20 Range/Units 07:35 07:35 Plt Count 468 H (150-450) k/uL Lymphocytes # 0.9 L (1.0-4.8) k/uL Potassium 2.7 L* (3.5-5.1) mmol/L Chloride 111 H (98-107) mmol/L BUN 5 L (7-17) mg/dL Creatinine 0.42 L (0.52-1.04) mg/dL Microbiology - Last 24 Hours (Table) 10/21/20 05:21 Blood Culture - Preliminary Blood No Growth after 72 hours Assessment and Plan Assessment: Perforated peptic ulcer status post exploratory laparotomy and abdominal washout and gastrorrhaphy Secondary bacterial peritonitis secondary to above Uncontrolled hypertension Plan: This is a pleasant 60 years old female who presents with perforated peptic ulcer status post exploratory laparotomy. Continue with broad-spectrum antibiotics as per infectious disease recommendation. Patient is currently is on Zosyn and fluconazole. Surgical primary team on the case and there, and continue with IV fluids for now. Continue with antihypertensive medication including hydralazine as needed. Also continue with Protonix IV twice daily. Continue with clonidine and as needed hydralazine for high blood pressure Patient is followed by several consultants including surgical team, infectious disease, gastroenterology Labs and medication were reviewed.. Continue same treatment. Continue with symptomatic treatment. Resume home medication. Monitor lytes and vitals. DVT and GI prophylaxis. Further recommendationsas per clinical course of the patient DVT prophylaxis: Subcutaneous heparin GI Prophylaxis: Ppi Time with Patient: Greater than 30
--- NOTE | 2020-10-24 22:59 | PN ---
PROGRESS NOTE DATE OF SERVICE: 10/24/2020 REASON FOR FOLLOWUP: Secondary peritonitis from perforated peptic ulcer disease. INTERVAL HISTORY: The patient is currently afebrile. The patient is breathing comfortably. NG has been discontinued. Denies having any chest pain, shortness of breath or cough. No nausea, no vomiting. bowel movement. PHYSICAL EXAMINATION: Blood pressure 159/93 with a pulse of 94, temperature 98.7. She is 96% on room air. General description is a middle-aged female lying in bed in no distress. RESPIRATORY SYSTEM: Unlabored breathing. Clear to auscultation anteriorly. HEART: S1, S2. Regular rate and rhythm. ABDOMEN: Soft. No tenderness. LABS: Hemoglobin 11.8, white count 8.5, BUN of 5, creatinine 0.42. Blood culture has been negative. DIAGNOSTIC IMPRESSION AND PLAN: Patient with perforated peptic ulcer disease, status post laparotomy and repair of the same. The patient is currently covered with Zosyn and Diflucan; to continue while monitoring clinical course closely. Continue with supportive care. MMODL / IJN: [id number] /
[2020-10-25] MEDS: POTASSIUM CHLORIDE ER 20 MEQ TAB.ER PO SCH ×5 (01:59→12:05)
[2020-10-25] MEDS: MAGNESIUM SULFATE-D5W PMX 1 GM in DEXTROSE/WATER 1 100ML.BAG IVPB SCH ×2 (02:00→02:55)
[2020-10-25] MEDS: HYDROmorphone 1 MG/ML 1 ML SYRINGE IVP PRN ×2 (04:29→10:44)
[2020-10-25 08:00] LABS: Basophils # (A) 0.1 k/uL (0-0.2); Basophils % (A) 1 %; Eosinophils # (A) 0.4 k/uL (0-0.7); Eosinophils % (A) 5 %; HCT 35.2 % (34.0-46.0); HGB 11.6 gm/dL (11.4-16.0); Lymphocytes # (A) 0.9 k/uL (1.0-4.8); Lymphocytes % (A) 12 %; MCHC 32.9 g/dL (31.0-37.0); MCV 94.2 fL (80.0-100.0); Mean Platelet Volume 7.1; Monocytes # (A) 0.6 k/uL (0-1.0); Monocytes % (A) 8 %; Neutrophils # (A) 5.4 k/uL (1.3-7.7); Neutrophils % (A) 74 %; Platelet Count 505 k/uL (150-450); RBC 3.73 m/uL (3.80-5.40); RDW 13.4 % (11.5-15.5); WBC 7.3 k/uL (3.8-10.6)
[2020-10-25] MEDS: LOSARTAN 50 MG TAB PO SCH (08:06)
[2020-10-25] MEDS: PANTOPRAZOLE 40 MG TABLET PO SCH ×2 (08:06→21:02)
[2020-10-25] MEDS: HEPARIN SODIUM,PORCINE 5,000 UNIT/ML 1 ML VIAL SQ SCH ×3 (08:06→23:59)
[2020-10-25] MEDS: PIPERACILLIN-TAZOBACTAM 3.375 GM in SODIUM CHLORIDE 0.9% 100 ML IVPB SCH ×3 (08:07→23:59)
[2020-10-25] MEDS: SODIUM CHLORIDE 0.9% 1,000 ML IV SCH (08:07)
[2020-10-25 08:09] LABS: Potassium 3.3 mmol/L (3.5-5.1)
[2020-10-25 08:10] LABS: African American GFR (CKD) >90 (>60 ml/min/1.73 sqM); Anion Gap 9 mmol/L; Blood Urea Nitrogen <2 mg/dL (7-17); Carbon Dioxide 27 mmol/L (22-30); Chloride 101 mmol/L (98-107); Glucose 100 mg/dL (74-99); Magnesium 2.1 mg/dL (1.6-2.3); Non-African American GFR(CKD) >90 (>60 ml/min/1.73 sqM); Sodium 137 mmol/L (137-145)
--- NOTE | 2020-10-25 11:55 | P.PN ---
Subjective Progress Note Date: 10/25/20 CHIEF COMPLAINT: Abdominal pain HISTORY OF PRESENT ILLNESS: Patient seen and examined with Dr. cheung. Patient is followed for her perforated prepyloric ulcer status post exploratory laparotomy, washout of abdominal cavity, gastrorrhaphy and Evelio patch. Patient is tolerating full liquid diet. She is complaining of diarrhea through the night. She denies any abdominal pain. She denies any nausea or vomiting. Patient's sinus tachycardia has resolved. She still having elevated blood pressures. Medicine service is following. Patient is passing gas. Afebrile. WBC 7.3H to be 11.6 potassium 3.3 creatinine 0.32 Mg 2.1 PHYSICAL EXAM: VITAL SIGNS: Reviewed. GENERAL: Well-developed in no acute distress. HEENT: No sclera icterus. Extraocular movements grossly intact. Moist buccal mucosa. Head is atraumatic, normocephalic. ABDOMEN: Soft. Nondistended. Incision site clean dry and intact KAREEN drain with serosanguineous fluid. NEUROLOGIC: Alert and oriented. Cranial nerves II through XII grossly intact. ASSESSMENT: 1. Perforated prepyloric ulcer status post exploratory laparotomy, washout of abdominal cavity, gastrorrhaphy and Evelio patch. Postop day #5 2. Hypokalemia 3. Hypomagnesemia improved PLAN: -Advance diet to regular -potassium being replaced by medicine service -Hep-Lock IV fluids -Continue antibiotics -IV Dilaudid as needed for pain -Hypertension treatment per medicine service -Encourage patient to ambulate and use incentive spirometer. -GI prophylaxis Protonix and DVT prophylaxis subcu heparin Physician Travel Counselor [employer] note has been reviewed by physician. Signing provider agrees with the documented findings, assessment, and plan of care. Objective - Vital Signs Vital signs: Vital Signs Temp 98.8 F 10/25/20 08:00 Pulse 89 10/25/20 08:00 Resp 18 10/25/20 08:00 BP 178/95 10/25/20 08:00 Pulse Ox 97 10/25/20 08:00 Intake & Output 10/24/20 10/25/20 10/25/20 18:59 06:59 18:59 Intake Total 2515 180 Output Total 1230 100 75 Balance 1285 -100 105 Intake: Intake, IV Titration 1800 Amount Fluconazole in NaCl,Iso- 100 Osm 200 mg In Saline 1 100ml.bag @ 100 mls/hr IVPB DAILY@1400 [facility] Rx#: [id number] Magnesium Sulfate-D5w Pmx 200 1 gm In Dextrose/Water 1 100ml.bag @ 100 mls/hr IVPB Q1H [facility] Rx#: [id number] Piperacillin-Tazobactam 3 100 .375 gm In Sodium Chloride 0.9% 100 ml @ 25 mls/hr IVPB Q8HR LESTER Rx# :[id number] Potassium Chloride 10 meq 400 In Water For Injection 1 100ml.bag @ 100 mls/hr IVPB Q1H [facility] Rx#: [id number] Sodium Chloride 0.9% 1, 1000 000 ml @ 125 mls/hr IV . Q8H [facility] Rx#:[id number] Oral 715 180 Output: Drainage 130 100 75 Abdomen 130 100 75 Urine 1100 Other: Voiding Method Indwelling Catheter Toilet Toilet # Voids 2 - Labs CBC & Chem 7: 10/25/20 07:13 10/25/20 07:13 Labs: Abnormal Lab Results - Last 24 Hours (Table) 10/24/20 10/25/20 10/25/20 Range/Units 23:59 07:13 07:13 RBC 3.73 L (3.80-5.40) m/uL Plt Count 505 H (150-450) k/uL Lymphocytes # 0.9 L (1.0-4.8) k/uL Potassium 2.5 L* 3.3 L (3.5-5.1) mmol/L BUN <2 L (7-17) mg/dL Creatinine 0.32 L (0.52-1.04) mg/dL Glucose 100 H (74-99) mg/dL Calcium 8.0 L (8.4-10.2) mg/dL Microbiology - Last 24 Hours (Table) 10/21/20 05:21 Blood Culture - Preliminary Blood No Growth after 96 hours
[2020-10-25] MEDS: ACETAMINOPHEN TAB 325 MG TAB PO PRN ×2 (12:08→15:57)
[2020-10-25 12:19] VITALS: BMI 28.5
[2020-10-25] MEDS: FLUCONAZOLE IN NACL,ISO-OSM 200 MG in SALINE 1 100ML.BAG IVPB SCH (15:07)
[2020-10-25] MEDS ORDERED: HYDROcodone/APAP 5-325MG 1 EACH TAB PO PRN (16:47)
--- NOTE | 2020-10-25 17:30 | PN ---
PROGRESS NOTE DATE OF SERVICE: 10/25/2020 REASON FOR FOLLOWUP: Secondary peritonitis from perforated peptic ulcer disease. INTERVAL HISTORY: The patient is currently afebrile. The patient is breathing comfortably. The patient denies having any chest pain or shortness of breath or cough. Abdominal pain is currently improved. No nausea, no vomiting. Did have some diarrhea. PHYSICAL EXAMINATION: Blood pressure 145/79, pulse of 93, temperature 98.1. She is 93% on room air. General description is a middle-aged female lying in bed in no distress. RESPIRATORY SYSTEM: Unlabored breathing. Clear to auscultation anteriorly. HEART: S1, S2. Regular rate and rhythm. ABDOMEN: Soft. Mildly tender. No guarding or rigidity. LABS: Hemoglobin is 11.6, white count 7.3, creatinine 0.32. DIAGNOSTIC IMPRESSION AND PLAN: Patient with secondary peritonitis from perforated peptic ulcer disease in this patient who is status post laparotomy and repair of the . The patient is covered with Zosyn and Diflucan. Transition to oral antibiotic on discharge. at the bedside. Questions were answered. MMODL / IJN: [id number] /
--- NOTE | 2020-10-25 20:41 | P.PN ---
Progress Note - Text Progress Note Date: 10/25/20 Chief Complaint: Abdominal pain History of presenting complaint: This is a very pleasant 60-year-old patient of Dr. Dinorah Green. 2 weeks ago patient started having pain in the mid back going across. She found it better specifically sitting in a chair. Both present on and off. Patient also noticed upper abdominal pain recently. No nausea vomiting. No fever. Appetite is okay. And decided to present. Lipase was slightly elevated in the ER. No fever no chills. The following morning patient is pain was most significant in the abdomen. Computed tomography scan did show free air. Patient was taken to the operating room by Dr. Lake and patient was found to have a perforated prepyloric ulcer with possibly secondary peritonitis. Today-patient been having some mushy stools. Abdominal pain is better. Laying in bed. Does feel tired. Has a KAREEN drain. Full liquid diet was advanced to regular by surgery today. No nausea vomiting. at the bedside Review of systems: Was done for constitutional, cardiovascular, GI, pulmonary. relevant finding as above Active Medications Acetaminophen (Acetaminophen Tab 325 Mg Tab) 650 mg PO Q4HR PRN PRN Reason: Fever and/ or Pain Last Admin: 10/25/20 15:57 Dose: 650 mg Documented by: Hydrocodone Bitart/Acetaminophen (Hydrocodone/Apap 5-325mg 1 Each Tab) 1 each PO Q6HR PRN PRN Reason: Pain Last Admin: 10/25/20 20:30 Dose: 1 each Documented by: Benzocaine (Benzocaine [place] 1 Can) 1 spray MUCOUS MEM QID PRN PRN Reason: Mouth Irritation Last Admin: 10/21/20 03:54 Dose: 1 spray Documented by: Diphenhydramine HCl (Diphenhydramine 50 Mg/Ml 1 Ml Vial) 25 mg IVP Q6HR PRN PRN Reason: Itching Last Admin: 10/23/20 23:29 Dose: 25 mg Documented by: Docusate Sodium (Docusate 100 Mg Cap) 100 mg PO BID PRN PRN Reason: Constipation Heparin Sodium (Porcine) (Heparin Sodium,Porcine 5,000 Unit/Ml 1 Ml Vial) 5,000 unit SQ Q8HR LESTER Last Admin: 10/25/20 15:59 Dose: 5,000 unit Documented by: Hydralazine HCl (Hydralazine Hcl 20 Mg/Ml 1 Ml Vial) 10 mg IVP Q6HR PRN PRN Reason: Blood Pressure - High Last Admin: 10/24/20 09:12 Dose: 10 mg Documented by: Hydromorphone HCl (Hydromorphone 1 Mg/Ml 1 Ml Syringe) 1 mg IVP Q3HR PRN PRN Reason: Pain Last Admin: 10/25/20 10:44 Dose: 1 mg Documented by: Piperacillin Sod/Tazobactam (Sod 3.375 gm/ Sodium Chloride) 100 mls @ 25 mls/hr IVPB Q8HR LESTER Last Admin: 10/25/20 15:58 Dose: 25 mls/hr Documented by: Fluconazole/Sodium Chloride (200 mg/ IV Solution) 100 mls @ 100 mls/hr IVPB DAILY@1400 LESTER Last Admin: 10/25/20 15:07 Dose: 100 mls/hr Documented by: Ropivacaine 250 mg/Hydromorphone HCl 5 mg/ Sodium Chloride 250 mls @ 0 mls/hr EPIDURAL .Q0M PRN; Protocol PRN Reason: Pain Control Last Admin: 10/24/20 06:04 Dose: 6 mls/hr Documented by: Losartan Potassium (Losartan 50 Mg Tab) 100 mg PO DAILY LESTER Metoprolol Tartrate (Metoprolol Tartrate 50 Mg Tab) 50 mg PO BID [facility] Miscellaneous Information (Magnesium Replacement Protocol 1 Each Misc) 1 each MISCELLANE DAILY PRN; Protocol PRN Reason: Per Protocol Miscellaneous Information (Potassium Replacement Protocol 1 Each Misc) 1 each MISCELLANE DAILY PRN; Protocol PRN Reason: Per Protocol Miscellaneous Information (Potassium Replacement Protocol 1 Each Misc) 1 each MISCELLANE DAILY PRN; Protocol PRN Reason: Per Protocol Morphine Sulfate (Morphine Sulfate 4 Mg/Ml Syringe) 4 mg IV Q4HR PRN PRN Reason: Severe Pain Nalbuphine HCl (Nalbuphine 10 Mg/Ml (1 Ml Amp)) 2.5 mg IV Q4HR PRN PRN Reason: Itching Naloxone HCl (Naloxone 0.4 Mg/Ml 1 Ml Vial) 0.2 mg IV Q2M PRN PRN Reason: Opioid Reversal Ondansetron HCl (Ondansetron 4 Mg/2 Ml Vial) 4 mg IVP Q8HR PRN PRN Reason: Nausea And Vomiting Last Admin: 10/25/20 12:16 Dose: 4 mg Documented by: Pantoprazole Sodium (Pantoprazole 40 Mg Tablet) 40 mg PO BID LESTER Last Admin: 10/25/20 08:06 Dose: 40 mg Documented by: Past medical history to include: Essential hypertension Social history: Patient is a childcare. . Denies use of alcohol or smoking. Physical examination: VITAL SIGNS: 98.1, 93, 16, 1 45 x 79, 97% room air GENERAL: Laying in bed, comfortable EYES: Pupils equal. Conjunctiva normal. NECK: JVD not raised; masses not palpable. HEART: First and second heart sounds are normal; no edema. LUNGS: Respiratory rate normal; clear to auscultation. ABDOMEN: Soft, abdominal tenderness, no guarding rigidity, liver spleen not palpable, no masses palpable. Abdominal binder. KAREEN drain PSYCH: Alert and oriented x3; mood and affect normal. NEUROLOGICAL: Cranial nerves grossly intact; no facial asymmetry, power and sensation grossly intact. INVESTIGATIONS, reviewed in the clinical context: Repeat computed tomography scan-free intraperitoneal air with cystitis. A fluid level. Possible abscess. White count 6.9 hemoglobin 15.3 platelets 404 potassium 3.9 bun 25 creatinine 0.53 Lipase 588 Coronavirus [PCF]-not detected Computed tomography scan of the abdomen pelvis-mild nonspecific free fluid within the abdomen and pelvis. Assessment and plan: -Acute perforated prepyloric gastric ulcer. Patient was taken to the operating room and surgical repair was care of Dr. Lake. Patient has a KAREEN drain. Diet is being advanced. -Secondary peritonitis secondary to perforated viscus, patient on IV Diflucan, IV Zosyn -Reactive thrombocytosis -Hypokalemia, potassium is being replaced -Metabolic acidosis, replacement of bicarbonate -Essential hypertension, patient on Cozaar in Catapres patch. Will DC the Catapres patch and start the patient Lopressor. Care was discussed with the patient and at the bedside. Patient to sit up more in the chair and ambulate in the room as tolerated. Diet has been advanced to regular per surgery. Replace potassium.
[2020-10-25] MEDS: METOPROLOL TARTRATE 50 MG TAB PO SCH (21:02)
[2020-10-26 04:58] VITALS: BP 148/72; PULSE 87; RESP 14; TEMP 98.4
[2020-10-26] MEDS: METOPROLOL TARTRATE 50 MG TAB PO SCH (08:14)
[2020-10-26] MEDS: HEPARIN SODIUM,PORCINE 5,000 UNIT/ML 1 ML VIAL SQ SCH (08:14)
[2020-10-26] MEDS: PANTOPRAZOLE 40 MG TABLET PO SCH (08:14)
[2020-10-26] MEDS: PIPERACILLIN-TAZOBACTAM 3.375 GM in SODIUM CHLORIDE 0.9% 100 ML IVPB SCH (08:14)
[2020-10-26] MEDS: ACETAMINOPHEN TAB 325 MG TAB PO PRN (08:18)
[2020-10-26] MEDS ORDERED: LOSARTAN 50 MG TAB PO SCH (09:00)
--- NOTE | 2020-10-26 09:05 | P.PN ---
Subjective Progress Note Date: 10/26/20 Principal diagnosis: Perforated ulcer Patient doing better today. She would like to go home today she states. She is tolerating her diet. Some loose stools after meals. Says it's improving. KAREEN draining serous. Objective - Vital Signs Vital signs: Vital Signs Temp 98.4 F 10/26/20 04:57 Pulse 87 10/26/20 04:57 Resp 14 10/26/20 04:57 BP 148/72 10/26/20 04:57 Pulse Ox 94 L 10/26/20 04:57 Intake & Output 10/25/20 10/26/20 10/26/20 18:59 06:59 18:59 Intake Total 280 236 Output Total 125 60 Balance 155 -60 236 Weight 75.5 kg Intake: Intake, IV Titration 100 Amount Fluconazole in NaCl,Iso- 100 Osm 200 mg In Saline 1 100ml.bag @ 100 mls/hr IVPB DAILY@1400 LESTER Rx#: [id number] Oral 180 236 Output: Drainage 125 60 Abdomen 125 60 Other: Voiding Method Toilet Toilet # Voids 3 - Exam Abdomen: Soft, nondistended, nontender, incision clean and dry - Labs CBC & Chem 7: 10/25/20 07:13 10/25/20 07:13 Labs: Microbiology - Last 24 Hours (Table) 10/21/20 05:21 Blood Culture - Preliminary Blood No Growth after 120 hours Assessment and Plan (1) Perforated ulcer Narrative/Plan: Patient doing better at this time. Continue soft diet. Continue antiacid therapy. May discharge from our standpoint but deferred to primary service. If discharge drain may be removed prior to discharge. Current Visit: Yes Status: Acute Code(s): K27.5 - CHRONIC OR UNSP PEPTIC ULCER, SITE UNSP, WITH PERFORATION SNOMED Code(s): 45613751
[2020-10-26] MEDS: POTASSIUM CHLORIDE ER 20 MEQ TAB.ER PO SCH (12:25)
--- NOTE | 2020-10-26 20:00 | P.DS ---
Providers Date of admission: 10/19/20 11:03 Expected date of discharge: 10/26/20 Attending physician: Reno John Consults: 10/20/20 10:08 Consult Physician Routine Consulting Provider: Hernán Lake Consult Reason/Comments: severe epigastric pain, rule out perforation Do you want consulting provider notified?: Yes 10/20/20 14:13 Consult Physician Routine Consulting Provider: Anderson Walker Consult Reason/Comments: Gastric ulcer perforation Do you want consulting provider notified?: Yes Primary care physician: Morales Green [facility] Course: Chief Complaint: Abdominal pain History of presenting complaint: This is a very pleasant 60-year-old patient of Dr. Dinorah Green. 2 weeks ago patient started having pain in the mid back going across. She found it better specifically sitting in a chair. Both present on and off. Patient also noticed upper abdominal pain recently. No nausea vomiting. No fever. Appetite is okay. And decided to present. Lipase was slightly elevated in the ER. No fever no chills. The following morning patient is pain was most significant in the abdomen. Computed tomography scan did show free air. Patient was taken to the operating room by Dr. Lake and patient was found to have a perforated prepyloric ulcer with possibly secondary peritonitis. Patient was treated with IV Diflucan and IV Zosyn. Today-doing well. Did tolerate her meals. Soft stool. Abdominal pain is well controlled. KAREEN drain is present. Care was discussed with the patient. Questions were answered. Post surgery KAREEN drain will be removed before discharge. Communicated with Dr. brooks from [place]. Patient to be discharged on Augmentin and Diflucan. Surgical orders for DC Discussion and discharge planning more than 35 minutes Consultation: Dr. Lake from general surgery Dr. Shameka Mercedes from GI Dr. Walker from [place] Past medical history to include: Essential hypertension Social history: Patient is a childcare. . Denies use of alcohol or smoking. Physical examination: VITAL SIGNS: 98.4, 87, 14, 1 48 x 72, 94% room air GENERAL: Laying in bed, comfortable EYES: Pupils equal. Conjunctiva normal. NECK: JVD not raised; masses not palpable. HEART: First and second heart sounds are normal; no edema. LUNGS: Respiratory rate normal; clear to auscultation. ABDOMEN: Soft, mild abdominal tenderness, no guarding rigidity, liver spleen not palpable, no masses palpable. Abdominal binder. KAREEN drain PSYCH: Alert and oriented x3; mood and affect normal. NEUROLOGICAL: Cranial nerves grossly intact; no facial asymmetry, power and sensation grossly intact. INVESTIGATIONS, reviewed in the clinical context: Repeat computed tomography scan-free intraperitoneal air with cystitis. A fluid level. Possible abscess. White count 6.9 hemoglobin 15.3 platelets 404 potassium 3.9 bun 25 creatinine 0.53 Lipase 588 Coronavirus [PCF]-not detected Computed tomography scan of the abdomen pelvis-mild nonspecific free fluid within the abdomen and pelvis. Assessment and plan: -Acute perforated prepyloric gastric ulcer. POA -Secondary peritonitis secondary to perforated viscus, patient on IV Diflucan, IV Zosyn-being discharged on Augmentin and Diflucan -Reactive thrombocytosis -Hypokalemia, potassium is being replaced -Metabolic acidosis, replacement of bicarbonate -Essential hypertension, patient on Cozaar in Catapres patch. Catapres patch discontinued and patient started on Lopressor Disposition: Home Plan - Discharge Summary New Discharge Prescriptions: New Metoprolol Tartrate [Lopressor] 50 mg PO BID #60 tab Acetaminophen Tab [Tylenol] 650 mg PO Q4HR PRN tab PRN Reason: Fever And/ Or Pain Amoxicillin/Potassium Clav [Augmentin 875-125 Tablet] 1 tab PO Q12HR 1 Days #14 tab Fluconazole [Diflucan] 200 mg PO DAILY #7 tab Changed Losartan [Cozaar] 100 mg PO DAILY #0 Discharge Medication List Acetaminophen Tab [Tylenol] 650 mg PO Q4HR PRN tab 10/26/20 [Rx] Amoxicillin/Potassium Clav [Augmentin 875-125 Tablet] 1 tab PO Q12HR 1 Days #14 tab 10/26/20 [Rx] Fluconazole [Diflucan] 200 mg PO DAILY #7 tab 10/26/20 [Rx] Losartan [Cozaar] 100 mg PO DAILY #0 10/26/20 [Rx] Metoprolol Tartrate [Lopressor] 50 mg PO BID #60 tab 10/26/20 [Rx] Follow up Appointment(s)/Referral(s): Pam Mercedes MD [STAFF PHYSICIAN] - 4 Weeks Morales Green DO [Primary Care Provider] - 1-2 days Hernán Lake MD [STAFF PHYSICIAN] - 1 Week Patient Instructions/Handouts: Metoprolol (By mouth), Amoxicillin/Clavulanate Potassium (By mouth), Fluconazole (By mouth), Peptic Ulcer (DC), Pancreatitis (DC), Ileus (DC) Discharge Disposition: HOME SELF-CARE
== END 2020-10-26 13:35 | disposition home or self-care (01) | DRG 326 ==
LOC: EC 12:14 → 6NMEDSUR 14:47 → OBSVTOIN 10-19 11:03 → 3SCARD 10-20 17:08 → 5NMEDONC 10-25 10:57
PROVIDERS: ADMIT Hospitalist; ATTEND Hospitalist
PROC: 3E1M38Z Irrigation of Peritoneal Cavity using Irrigating Substance, Percutaneous Approach (ICD-10-PCS; 2020-10-20)
PROC: 0DU707Z Supplement Stomach, Pylorus with Autologous Tissue Substitute, Open Approach (ICD-10-PCS; principal; 2020-10-20 13:00)
DX: K25.1 Acute gastric ulcer with perforation (principal); K65.8 Other peritonitis; K85.90 Acute pancreatitis without necrosis or infection, unspecified; E87.2 Acidosis; K56.7 Ileus, unspecified; D64.9 Anemia, unspecified; E83.42 Hypomagnesemia; E87.6 Hypokalemia; I10 Essential (primary) hypertension; Z20.822 Contact with and (suspected) exposure to COVID-19; Z79.899 Other long term (current) drug therapy; Z80.0 Family history of malignant neoplasm of digestive organs; D47.3 Essential (hemorrhagic) thrombocythemia; M19.90 Unspecified osteoarthritis, unspecified site; Z87.730 Personal history of (corrected) cleft lip and palate; Z90.49 Acquired absence of other specified parts of digestive tract; Z88.2 Allergy status to sulfonamides; Z88.8 Allergy status to other drugs, medicaments and biological substances; Z98.42 Cataract extraction status, left eye; Z98.41 Cataract extraction status, right eye
CPT/HCPCS: 36415; 62325; 72114; 74177; 76942; 80048; 80053; 80076; 81003; 82150; 83605; 83690; 83735; 84132; 85025; 87040; 87635; 96361; 96374; 96375; 96376; 99285

== ENCOUNTER → 2020-11-29 | Outpatient (CLI) | payer BC ==
--- NOTE | 2020-11-29 13:36 | MR ---
EXAMINATION TYPE: MR lumbar spine wo con DATE OF EXAM: 11/29/2020 COMPARISON: NONE HISTORY: Pain in upper and lower back x many years. Center to left sided. TECHNIQUE: T1 and T2 axial and sagittal images of the lumbar spine are submitted. FINDINGS: There is no abnormal signal seen within the visualized spinal cord or paraspinal soft tissu es. Heterogeneous marrow involving the sacrum may be related to fatty marrow conversion. At L1-2 there is broad-based central disc bulging with ligamentum flavum hypertrophy and facet arthro johnnie. Mild impression upon the thecal sac and mild bilateral foraminal encroachment. Borderline belkys l stenosis. At L2-3 there is broad-based disc bulging with facet arthropathy and ligamentum flavum. Mild central stenosis with bilateral foraminal encroachment. At L3-4 there is degenerative disc disease with focal central disc herniation resulting in moderate c ompression of the thecal sac. Facet arthropathy and ligamentum flavum contribute to central stenosis. Mild bilateral foraminal encroachment. At L4-5 there is degenerative disc disease with facet arthropathy. Broad-based central small disc her niation with mild effacement of thecal sac. No evidence of foraminal encroachment. At L5-S1 there is degenerative disc disease. There is facet arthropathy. No canal stenosis or foramin al encroachment. IMPRESSION: 1. Multilevel degenerative disc disease with multilevel disc bulging. 2. Focal central disc herniation L3-L4 and L4-L5 with compression of the thecal sac as discussed abov e. EXAMINATION TYPE: MR thoracic spine wo con DATE OF EXAM: 11/29/2020 COMPARISON: None HISTORY: Pain in upper and lower back x many years. Center to left sided. Standard multiplanar, multisequence MRI departmental protocol Multiplanar, multisequence images of the thoracic spine were acquired. FINDINGS: Alignment is anatomic. There is loss of disc signal and space all levels compatible with degenerative disc disease. No compression deformities. Multiple small vertebral body hemangioma suspected. At T1-T2 there is degenerative disc disease. Neural foramina patent. No disc herniation or canal sten osis. At T2-T3 there is no disc herniation or canal stenosis. Neural foramina patent. At T3-T4 there is degenerative disc disease. Suggestion of an annular tear and small focal central di sc bulge. No spinal cord contact or canal stenosis. Ligamentum flavum hypertrophy noted. At T4-T5 degenerative disc disease but no disc herniation or canal stenosis. No foraminal encroachmen t. At T6-T7 is minimal central disc bulging but no focal herniation, canal stenosis, or foraminal encroa chment. Degenerative disc disease noted. At T7-T8 there is minimal central disc bulging but no focal herniation, canal stenosis, or foraminal encroachment. At T8-T9 there is minimal broad-based disc bulging but no focal herniation, canal stenosis, or forami nal encroachment. Ligamenta flava hypertrophy noted. Next At T9-T10 there is ligamentum flavum hypertrophy. No disc herniation. No Canal stenosis. No foraminal encroachment. At T10-T11 ligamentum flavum hypertrophy and mild facet arthropathy. Mild circumferential disc bulgin g. Neural foramina patent. No focal herniation or canal stenosis. At T11-T12 there is facet arthropathy and ligamentum flavum hypertrophy. No disc herniation or canal stenosis. No foraminal encroachment. Mild circumferential disc bulging. At T12-L1 there is a broad-based disc bulging with facet arthropathy and ligamentum flavum hypertroph y no canal stenosis or foraminal encroachment. No abnormal signal within the visualized spinal cord. Suggestion of possible 4 mm right hepatic cyst. IMPRESSION: 1. Multilevel degenerative disc disease with multilevel disc bulging but no focal herniation or canal stenosis. No foraminal encroachment. 2. Annular tear and small focal central disc bulge or tiny protrusion T3-T4 but no evidence of spinal cord contact, canal stenosis, or foraminal encroachment.
== END | disposition home or self-care (01) ==
LOC: RADMRIMAIN 11:46
PROVIDERS: ATTEND Family Medicine
DX: M51.36 Other intervertebral disc degeneration, lumbar region (principal); M51.26 Other intervertebral disc displacement, lumbar region; M47.896 Other spondylosis, lumbar region; M51.24 Other intervertebral disc displacement, thoracic region
CPT/HCPCS: 72146; 72148

== ENCOUNTER → 2021-11-20 | Day surgery (SDC) | payer BC ==
[2021-11-18 10:47] VITALS: BMI 24.0
[~2021-11-20] MED LIST: LACTATED RINGERS 1,000 ML IV SCH; LIDOCAINE 1% (10MG/ML) FOR IV START INTRADERMA PRN; LIDOCAINE 1% INJ 10MG/ML (20 ML MDV) ONE; ONDANSETRON 4 MG/2 ML VIAL IVP PRN; PROPOFOL 10 MG/ML 20 ML VIAL IV ONE
[2021-11-20 08:44] VITALS: TEMP 97.8
--- NOTE | 2021-11-20 09:20 | P.GSHP ---
History of Present Illness H&P Date: 11/20/21 Chief Complaint: Screening colonoscopy, history of gastric ulcer This a 61-year-old female who presents today for screening colonoscopy. Patient also has appears history of perforated gastric ulcer. She will undergo EGD today Past Medical History Past Medical History: Hypertension Additional Past Medical History / Comment(s): hx bleeding ulcer 2-2020 History of Any Multi-Drug Resistant Organisms: None Reported Past Surgical History: Bowel Resection, Ear Surgery, Orthopedic Surgery Additional Past Surgical History / Comment(s): EXPLORATORY LAPAROTOMY r/t "twisted intestine" in 2006 TOTAL RIGHT KNEE, ARTHROSCOPY , Cleft PALATE SURGERY age 5. Bilat Cataract surgery Past Anesthesia/Blood Transfusion Reactions: No Reported Reaction Smoking Status: Never smoker - Past Family History Mother Family Medical History: Cancer Father Family Medical History: Cancer Sister(s) Family Medical History: Cancer Medications and Allergies Home Medications Medication Instructions Recorded Confirmed Type Acetaminophen Tab [Tylenol] 650 mg PO Q4HR PRN tab 10/26/20 11/18/21 Rx Calcium(Unk Dose) 1 dose PO DAILY 11/18/21 11/18/21 History Losartan [Cozaar] 100 mg PO QAM 11/18/21 11/18/21 History Pantoprazole [Protonix] 40 mg PO BID 11/18/21 11/18/21 History Vitamin B Complex 1 each PO DAILY 11/18/21 11/18/21 History amLODIPine [Norvasc] 10 mg PO HS 11/18/21 11/18/21 History Allergies Allergy/AdvReac Type Severity Reaction Status Date / Time sulfamethoxazole Allergy Severe SWELLING Verified 11/20/21 08:36 [From Bactrim] ALL OVER. trimethoprim [From Bactrim] Allergy Severe SWELLING Verified 11/20/21 08:36 ALL OVER. lisinopril AdvReac Cough Verified 11/20/21 08:36 meperidine [From Demerol] AdvReac Nausea & Verified 11/20/21 08:36 Vomiting Surgical - Exam Vital Signs Temp Pulse Resp BP Pulse Ox 97.8 F 95 16 149/72 98 11/20/21 08:42 11/20/21 08:42 11/20/21 08:42 11/20/21 08:42 11/20/21 08:42 - General well developed, well nourished, no distress - Eyes PERRL - ENT normal pinna - Neck no masses - Respiratory normal expansion - Cardiovascular Rhythm: regular - Abdomen Abdomen: soft, non tender Assessment and Plan Assessment: History of peptic ulcer disease. We'll perform EGD. We'll also perform screening colonoscopy.
--- NOTE | 2021-11-20 09:49 | P.OP ---
Date of Procedure: 11/20/21 Preoperative Diagnosis: Peptic ulcer disease Screening colonoscopy Postoperative Diagnosis: Mild antral gastritis Tortuous colon Procedure(s) Performed: EGD Colonoscopy Anesthesia: MAC Surgeon: Hernán Lake Pathology: other (Antrum) Condition: stable Disposition: PACU Description of Procedure: The patient's placed on the endoscopy table in the lateral position she received IV sedation. The gastroscope placed oropharynx passed in the esophagus into the stomach. Scope was then placed through the pylorus. The first and second portion of the duodenum appeared normal. Scope was then brought back the antrum this was mildly inflamed. A biopsies performed. The scope was then retroflexed and remainder of the stomach appeared normal. The GE junction was at 47 is. The distal esophagus appeared normal. The proximal esophagus appeared normal. Scope withdrawn for patient. Next digital rectal exam was performed. This revealed minimal external hemorrhoids. The flexible colonoscope was then placed patient anus passed throughout the entire colon. The colon was very tortuous. Glucagon was given floor to relax the colon. The pediatric colonoscope was advanced all the way to the level of the right colon. There appeared to be evidence of previous bowel resection. The anastomosis visualized. The scope was then withdrawn. The remainder of the ascending, transverse and descending colon appeared normal. The sigmoid colon and rectum was normal. The scope was withdrawn for patient.
[2021-11-20 09:51] VITALS: RESP 20
[2021-11-20 10:24] VITALS: BP 132/85; PULSE 77
== END ==
LOC: ORWHC2ENDO 08:23
PROVIDERS: ATTEND Surgery
DX: Z12.11 Encounter for screening for malignant neoplasm of colon (principal); I10 Essential (primary) hypertension; K29.60 Other gastritis without bleeding; Q43.8 Other specified congenital malformations of intestine; K21.9 Gastro-esophageal reflux disease without esophagitis
CPT/HCPCS: 88305; 43239; J2001; J2704; G0121

== ENCOUNTER → 2023-05-06 | Outpatient (CLI) | payer BC ==
[2023-05-06 11:11] VITALS: BP 142/86; PULSE 83; RESP 16; TEMP 98.6
--- NOTE | 2023-05-06 14:52 | P.PAINPG ---
PQRS Measure Charge Sheet Comment: HISTORY OF PRESENT ILLNESS: 62 yr old female as a referral from Dr Green presents today w severe and chronic mid and lower back pain x 2 yrs secondary to DDD, spondylosis and facet arthropathy without myelopathy for evaluation. Pt states pain level is provoked at 10 /10 in intensity, constant, localized in the mid to lower lumbar spine, stabbing in character w shooting pain up towards the spine. Pain is provoked by standing for periods of 20 min or more. Pain is alleviated by heat, medications (Tyl, Biofreeze gel), sitting, repositioning and rest. PMH: OA, HTN, PUD (2020) PSH: Colonoscopy (2021), Exploratory Laparotomy & Bowel Resection (2006), Ear Surgery, R Knee Surgery, BL Cataract Removal, Cleft Palate repair at age 5 SH: Negative x3 FH: Mo- CA. Fa- CA. Sis- CA. All: See list Meds: See list REVIEW OF ORGAN SYSTEMS: CONSTITUTIONAL: No fevers or chills. No recent weight loss. NEUROLOGICAL: + numbness and tingling along the distal extremities. No seizure disorders or headaches. MUSCULOSKELETAL: + pain PSYCHIATRIC: Denies current depression or suicidal thoughts. Physical Examinations : Constitutional : Cooperative , not in acute distress . Neurologic : Cranial nerve II to XII intact. No focal neurological deficits. Psychiatric : alert & oriented x 3. Matching mood & appropriate affect. Judgment & insight intact. Musculoskeletal : Cervical Spine Motor strength in the deltoid and biceps: Normal right side. Normal Left side Motor strength biceps and the wrist extensors: Normal right side . Normal left side Motor strength in the triceps muscle: Normal right side. Normal left side Deep tendon reflexes: Normal at the biceps. Normal at Brachioradialis. Normal at triceps Vertebral body tenderness to deep palpation over Cervical facet loading test: positive bilaterally Spurling test: positive bilaterally Neck distraction test: positive bilaterally Josselyn sign: positive bilaterally Thoracic spine Vertebral TTP over T3, T4, T5 Lumbar spine Motor strength lower extremities ,thigh and legs 5/5 Right side , 5/5 Left side Deep tendon reflexes : Normal Knee Jerk. Normal Ankle Jerk Vertebral body tenderness over L4, L5 James Test positive Lumbar facet Loading Test: positive Right / positive Left Range of motion of the lumbar spine Flexion 30 degrees, extension 10 degrees Straight Leg Raise test: Left/ Right positive at degree Fifi test: positive right / positive left. Severe tenderness over the Sacroiliac joint on the Right / Left sides Gaenslen test: positive bilaterally Seated flexion test: positive bilater ally. Sacral spine : Severe tenderness over the Sacroiliac joint: right side / left side Range of motion: Flexion of the lumbar spine <60 degrees Range of motion: Extension of the lumbar spine <20 degrees Gaenslen's Test positive Anil's Test positive Iffi test: positive right side / left side Thigh Thrust Test Sacral Thrust Test Imaging: MRI noncontrast of the lumbar spine from 11/29/20 reviewed Assessment/ Plan : Thoracic disc herniation, Thoracic DDD, Lumbar disc herniation, lumbar DDD Recommendation of PT x 6 wks re: M51.36. Follow up for a re evaluation. All questions answered. I have spent greater than 30 minutes on patient care today. Dr Swartz was available by phone for the evaluation of this patient. The time was used to review the medical records including relevant urine studies and Prescription history (MAPs), review of the available imaging, evaluation and examination of the patient, coordination of care with the medical staff and if applicable referring physicians, as well as creation of the medical record PQRS Narrative: Smoking Status Never smoker Home Medications: Ambulatory Orders Acetaminophen Tab [Tylenol] 650 mg PO Q4HR PRN tab 10/26/20 Calcium(Unk Dose) 1 dose PO DAILY 11/18/21 Losartan [Cozaar] 100 mg PO QAM 11/18/21 Pantoprazole [Protonix] 40 mg PO BID 11/18/21 Vitamin B Complex 1 each PO DAILY 11/18/21 amLODIPine [Norvasc] 10 mg PO HS 11/18/21 Controlled Substance Measures - Controlled Substance Measures Is patient prescribed a controlled substance at discharge?: No
== END ==
LOC: PNWHC3 10:39
PROVIDERS: ATTEND Specialist
DX: M47.896 Other spondylosis, lumbar region (principal); M51.35 Other intervertebral disc degeneration, thoracolumbar region; M19.90 Unspecified osteoarthritis, unspecified site; I10 Essential (primary) hypertension; Z88.2 Allergy status to sulfonamides; Z88.8 Allergy status to other drugs, medicaments and biological substances; Z79.899 Other long term (current) drug therapy
CPT/HCPCS: 99211

== ENCOUNTER → 2024-07-13 | Outpatient (CLI) | payer BC ==
[2024-07-13 19:26] LABS: HCT 32.2 % (37.2-46.3); HGB 9.1 g/dL (12.0-15.0); MCH 20.5 pg (27.0-32.0); MCHC 28.3 g/dL (32.0-37.0); MCV 72.5 FL (80.0-97.0); Mean Platelet Volume 9.5 FL (9.5-12.2); NRBC Per 100 WBC 0 X 10*3/uL (0.00-0.01); Platelet Count 588 X 10*3/uL (140-440); RBC 4.44 X 10*6/uL (4.10-5.20); RDW 25.6 % (11.5-14.5); WBC 5.59 X 10*3/uL (4.50-10.00)
[2024-07-13 19:56] LABS: Anisocytosis (M) 2+; Basophils # (A) 0.08 X 10*3/uL (0.00-0.10); Basophils % (A) 1.4 %; Eosinophils % (A) 3.6 %; Hypochromasia (M) 2+; Lymphocytes # (A) 1.59 X 10*3/uL (0.90-5.00); Lymphocytes % (A) 28.4 %; Macrocytosis (M) 2+; Microcytosis (M) 2+; Monocytes # (A) 0.54 X 10*3/uL (0.20-1.00); Monocytes % (A) 9.7 %; Neutrophils # (A) 3.16 X 10*3/uL (1.80-7.70); Neutrophils % (A) 56.5 %; Spherocytes 2+
== END | disposition home or self-care (01) ==
LOC: RADXRMAIN 14:04
PROVIDERS: ATTEND Family Medicine
DX: Z13.9 Encounter for screening, unspecified (principal)
CPT/HCPCS: 82607; 82746; 83540; 84590; 85025